=== PATIENT | female | born 1935 | race Caucasian/White ===

== ENCOUNTER → 2017-03-31 | Outpatient (CLI) | payer MEDICARE, OTHER ==
[~2017-03-31] MED LIST: ASPI1TAB69 PO; CLOP75TA PO; DENO60P SQ; FOLI5CAP PO; HYDR200T3 PO; LEVO.15 PO; LOSA100T PO; METF1000 PO; METH2.5T INJ; METO25TA3 PO; MULT1TAB84 PO; MULT400T PO; OMEP20TA93 PO; OYST500T53 PO; VENTAER INH; VITA100064 PO
[2017-03-31 12:24] LABS: AUTOMATED NEUTROPHIL # 4.5 TH/MM3 (1.8-7.7); BASOPHIL # 0.1 TH/MM3 (0-0.2); BASOPHIL % 0.9 % (0.0-2.0); EOSINOPHIL # 0.2 TH/MM3 (0-0.4); EOSINOPHIL % 3.1 % (0.0-4.0); HEMATOCRIT 37.2 % (35.0-46.0); HEMO FLAGS DIFF FINAL; LYMPH % 14.1 % (9.0-44.0); LYMPHOCYTE # 0.9 TH/MM3 (1.0-4.8); MEAN CELL VOLUME 90.9 FL (80.0-100.0); MEAN CORPUSCULAR HEMOGLOBIN 31.4 PG (27.0-34.0); MEAN CORPUSCULAR HGB CONC 34.6 % (32.0-36.0); MONO % 8.1 % (0.0-8.0); NEUT % 73.8 % (16.0-70.0); PLATELET COUNT 243 TH/MM3 (150-450); RED BLOOD COUNT 4.09 MIL/MM3 (4.00-5.30); RED CELL DISTRIBUTION WIDTH 15.4 % (11.6-17.2); WHITE BLOOD COUNT 6.2 TH/MM3 (4.0-11.0)
== END ==
LOC: CLAB 12:03
PROVIDERS: ATTEND Surgery
DX: C50.919 Malignant neoplasm of unspecified site of unspecified female breast (principal)
CPT/HCPCS: 36415; 85025

== ENCOUNTER → 2017-03-31 | Outpatient (CLI) | payer MEDICARE, OTHER ==
--- NOTE | 2017-04-01 09:23 | EKG ---
Date Performed: 03/31/2017 Time Performed: 12:39:38 PTAGE: 82 years EKG: Sinus rhythm . Compared to prior tracing no significant change Normal ECG PREVIOUS TRACING : 04/01/2016 11.33 DOCTOR: Shaquille Camara Interpretating Date/Time 04/01/2017 09:21:40
== END ==
LOC: HCAV 12:32
PROVIDERS: ATTEND Surgery
DX: C50.919 Malignant neoplasm of unspecified site of unspecified female breast (principal)
CPT/HCPCS: 93005

== ENCOUNTER → 2017-04-12 | Day surgery (SDC) | payer MEDICARE, OTHER ==
[~2017-04-12] MED LIST changes: +BUPIVACAINE HCL PF 0.5% 10 ML VIAL ONE; +ISOSULFAN BLUE 50 MG/5 ML VIAL SQ ONE; +ONDANSETRON HCL 4 MG/2 ML VIAL IV PUSH ONE; +PROPOFOL 200 MG/20 ML AMP IV ONE; +RESP: ALBUTEROL 2.5 MG/3 ML NEB (SCH) ONE; +SODIUM CHLORIDE 0.9% 20 ML VIAL ONE; +ceFAZolin 2 GM PREMIX 50 ML ONE
--- NOTE | 2017-04-12 15:14 | TN ---
cc: MARLEE REYNOLDS DATE OF SURGERY: 04/12/2017 PREOPERATIVE DIAGNOSIS Right breast cancer. POSTOPERATIVE DIAGNOSIS Right breast cancer. PROCEDURE PERFORMED 1. Right breast needle-localized lumpectomy. 2. Right axillary sentinel lymph node biopsy. SURGEON Marlee Reynolds. ANESTHESIA General via LMA device. INDICATION The patient is an 82-year-old female noted to have two separate areas of invasive ductal carcinoma. The first site was at 10 o'clock 3 cm from the nipple, and the second site was at 12 o'clock 4 cm from the nipple. The patient and her daughter have opted for lumpectomy alone and refused consideration of mastectomy. She now presents for the procedure. INTRAOPERATIVE FINDINGS At the time of surgery two sentinel lymph nodes were identified. #1 had a count of 665, and #2 had a count of 257. There was no blue and touch-prep was not performed. Specimen mammogram did demonstrate an intact wire and both lesions and clips were present in the excised tissue. PROCEDURE After informed consent was obtained and site verification was performed, the patient was brought to the radiology suite where she underwent needle localization of both biopsy sites using a single wire as well as peritumoral radionuclide injection. She was then brought to the major operating room where she underwent general anesthesia via an LMA device. She was given a single dose of IV Ancef and sequential compression hose were placed. 8 cc of half-strength Lymphazurin were injected in the subareolar right breast and a five-minute massage was performed. The right breast was then prepped and draped in sterile fashion to include the right arm. An incision was anesthetized at the inferior aspect of the right axillary hairline using 0.5% Marcaine plain. The incision was then sharply created and further electrocautery dissection was performed until the clavipectoral fascia was divided and the level I axilla was entered. There was a mid level I lymph node which was circumferentially dissected free from surrounding structures, but this had no count. Two low level I lymph nodes were identified near the axillary tail of the breast and each of these was circumferentially dissected free from surrounding structures using the Harmonic scalpel with the counts as noted. There was no blue dye uptake. Hemostasis was easily obtained using the Harmonic scalpel and the lymph nodes were sent for permanent pathologic evaluation. The wound was closed using interrupted 3-0 Vicryl subcutaneous sutures and a 4-0 Monocryl subcuticular suture. Attention was then turned to the right breast and a periareolar incision was anesthetized from 12 o'clock down to 8 o'clock. Sharp dissection was performed until the wire entry point through the skin was identified and secured with a hemostat. The wire was cut off at the skin with pin cutters and a 2-0 silk transfixion suture was placed at the wire entry point into the breast tissue. Both sharp and electrocautery dissection were then performed circumferentially beyond the tip of the wire and the specimen was oriented with two sutures laterally, one long suture anteriorly, and one short suture superiorly. It should be noted that the 10 o'clock and 12 o'clock lesions were both contained within the single lumpectomy specimen. The specimen was sent to mammography with the findings as noted and was then sent for permanent pathologic evaluation. Hemostasis was easily obtained with electrocautery and the wound was closed using interrupted 3-0 Vicryl subcutaneous sutures and a 4-0 Monocryl subcuticular suture. Steri-Strips and sterile dressing were applied. The patient tolerated the procedure well with an estimated blood loss of 50 cc. She was extubated in the operating room and brought to the recovery room in good condition. MD OUMAR Hermosillo/CAITIE /2:45 PM /2:59 PM
== END | disposition home or self-care (01) ==
LOC: ESDC 08:56
PROVIDERS: ATTEND Surgery
DX: C50.911 Malignant neoplasm of unspecified site of right female breast (principal)
CPT/HCPCS: 00400; 01610; 19125; 38525; 38792; 88307; J0690; J2405; J3010; J7613; Q9968

== ENCOUNTER 2017-08-25 10:41 | Emergency (ER) | payer MEDICARE, OTHER ==
[~2017-08-25] VITALS: Ht 152.4 cm; Wt 52.0 kg
[~2017-08-25 10:41] MED LIST changes: -BUPIVACAINE HCL PF 0.5% 10 ML VIAL ONE; -ISOSULFAN BLUE 50 MG/5 ML VIAL SQ ONE; -ONDANSETRON HCL 4 MG/2 ML VIAL IV PUSH ONE; -PROPOFOL 200 MG/20 ML AMP IV ONE; -RESP: ALBUTEROL 2.5 MG/3 ML NEB (SCH) ONE; -SODIUM CHLORIDE 0.9% 20 ML VIAL ONE; -ceFAZolin 2 GM PREMIX 50 ML ONE
[2017-08-25 10:44] VITALS: BP 152/71; PULSE 85; RESP 18; TEMP 98; O2SAT 100
[2017-08-25] MEDS ORDERED: KETOROLAC TROMETHAMINE 60 MG/2 ML (IM) VIAL IM ONE (11:30)
[2017-08-25 12:35] VITALS: RESP 18
--- NOTE | 2017-08-25 12:49 | RADRPT ---
EXAM DATE/TIME: 08/25/2017 11:56 [facility] COMPARISON: No previous studies available for comparison. INDICATIONS : Back pain. MEDICAL HISTORY : None. SURGICAL HISTORY : None. ENCOUNTER: Initial ACUITY: 2 days PAIN SCORE: 10/10 LOCATION: Lumbar FINDINGS: There are five non-rib bearing vertebral bodies. Marked loss of disc space height at L4-5 and L5-S1. Moderate degenerative changes are present facets. Moderate vascular gas stations are noted. Lumba r spinal stenosis would be consideration. CONCLUSION: Extensive degenerative changes from L4 to S1.. There is no compression fracture Ridge Swanson MD FACR on August 25, 2017 at 12:45 Board Certified Radiologist. This report was verified electronically.
[2017-08-25] MEDS ORDERED: TRAM50TA PO (13:01)
[2017-08-25] MEDS ORDERED: SENN8.6T13 PO (13:02)
--- NOTE | 2017-08-25 13:02 | PD ---
HPI Chief Complaint: Back/ Neck Pain or Injury Time Seen by Provider: 11:12 Travel History International Travel<30 days: No Contact w/Intl Traveler<30days: No Traveled to known affect area: No History of Present Illness HPI 82-year-old woman presents emerged from complaining of low back pain, history of low back pain in the past, worse this morning. Pain with walking. No numbness tingling or weakness. Follows with Dr. Chavarria. History Past Medical History Medical History: Denies Significant Hx : 2 Para: 2 Social History Alcohol Use: No Tobacco Use: No Allergies-Medications (Allergen,Severity, Reaction): Coded Allergies: acetaminophen (Unverified Allergy, Severe, SHORTNESS OF BREATH, 12/27/16) ibuprofen (Unverified Allergy, Severe, BLOOD LOSS, 12/27/16) oxycodone (Unverified Allergy, Severe, SHORTNESS OF BREATH, 12/27/16) hydrocodone (Unverified Adverse Reaction, Severe, "WAS TO STRONG", 12/27/16 ) Influenza Virus Vaccines (Unverified Adverse Reaction, Intermediate, Hives , 12/27/16) Reported Meds & Prescriptions Reported Meds & Active Scripts Active Ventolin Hfa 18 GM Inh (Albuterol Sulfate) 90 Mcg/Act Aer 2 Puff INH Q4-6H PRN Reported Omeprazole 20 Mg Tab 20 Mg PO DAILY Prolia Inj (Denosumab) 60 Mg/Ml Inj 60 Mg SQ Q180D Vitamin D (Cholecalciferol) 1,000 Unit Tab 2,000 Units PO DAILY Oyster Shell Calcium (Calcium Carbonate-Cholecalciferol) 500-400 Mg-Unit Tab 1 Tab PO DAILY Multivitamin Adults (Multiple Vitamins W/ Minerals) 1 Tab 1 Tab PO DAILY Multaq (Dronedarone) 400 Mg Tab 400 Mg PO BID Aspirin 81 Mg Tabdr 81 Mg PO DAILY Clopidogrel (Clopidogrel Bisulfate) 75 Mg Tab 75 Mg PO DAILY Methotrexate 2.5 Mg Tab 17.5 Injection INJ Q7D Folic Acid 5 Mg Cap 1 Mg PO DIRECTED Hydroxychloroquine (Hydroxychloroquine Sulfate) 200 Mg Tab 200 Mg PO DAILY Takw with food Metoprolol Tartrate 25 Mg Tab 25 Mg PO BID Losartan (Losartan Potassium) 100 Mg Tab 100 Mg PO DAILY Metformin (Metformin HCl) 1,000 Mg Tab 1,000 Mg PO DAILY With a meal Synthroid (Levothyroxine Sodium) 150 Mcg Tab 150 Mcg PO DAILY Review of Systems Except as stated in HPI: all other systems reviewed are Neg Physical Exam Narrative GENERAL: 82-year-old woman, no acute distress per SKIN: Warm and dry. CARDIOVASCULAR: Warm and well perfused. RESPIRATORY: Normal rate and effort. MUSCULOSKELETAL: Normal appearance of the back. She is a bit kyphotic. No real tenderness. Pain with walking. Strength seems full and equal in lower extremities. Able to walk with a little bit of assistance. NEUROLOGICAL: Awake and alert. No gross deficits. Data Data Last Documented VS Vital Signs Date Time Temp Pulse Resp B/P (MAP) Pulse Ox O2 Delivery O2 Flow Rate FiO2 08/25/17 12:35 18 08/25/17 10:44 98.0 85 152/71 (98) 100 Orders Orders Spine, Lumbar Comp W/Obliq (08/25/17 ) Ketorolac Inj (Toradol Inj) (08/25/17 11:30) MDM Medical Decision Making Medical Screen Exam Complete: Yes Emergency Medical Condition: Yes Interpretation(s) L-spine x-ray: No definite fracture. Extensive degenerative changes. Differential Diagnosis Arthritis, compression fracture, radiculopathy, other Narrative Course Well-appearing 82-year-old woman, elderly, back pain with a history of back pain. Looks well. No other red flag symptoms. X-ray that shows arthritis. Recommend supportive treatment. Diagnosis Primary Impression: Low back pain Patient Instructions: General Instructions Additional Instructions: Take tramadol sparingly as needed for back pain. Take Ana-Colace with it to prevent constipation. Use caution a strong pain medicines can lead to increased risk of falls. Drink plenty fluids stay well-hydrated. Follow with her primary doctor in the next 2-4 days. Med/Other Pt SpecificInfo: Prescription(s) given Scripts Sennosides/Docusate Sodium (Docusate Sodium-Senna Tablet) 8.6 Mg-50 Mg Tablet 2 TAB PO HS, #20 Prov: Adin Hickman MD 08/25/17 Tramadol (Tramadol) 50 Mg Tab 50 MG PO Q8H Y for PAIN, #12 TAB 0 Refills Prov: Adin Hickman MD 08/25/17 Disposition: 01 DISCHARGE HOME Condition: Stable Adin Hickman MD Aug 25, 2017 13:02
== END 2017-08-25 13:23 | disposition home or self-care (01) ==
LOC: NEPD 10:41
DX: M54.5 Low back pain (principal)
CPT/HCPCS: 72110; 96372; 99283; J1885

== ENCOUNTER 2017-08-30 08:43 | Inpatient (IN) | payer MEDICARE, OTHER ==
[2017-08-30] VITALS (10 sets, daily range): BP systolic 158–213; BP diastolic 72–108; PULSE 74–109; RESP 17–20; TEMP 97.5–98.5; O2SAT 91–98
[~2017-08-30] VITALS: Ht 152.4 cm; Wt 52.0 kg
[~2017-08-30 08:43] MED LIST changes: +SENN8.6T13 PO; +TRAM50TA PO
[2017-08-30] MEDS ORDERED: HYDR-3516 PO (09:14)
[2017-08-30] MEDS ORDERED: ASPI-516 CHEW (09:14)
[2017-08-30] MEDS ORDERED: FOLI1TAB6 PO (09:14)
[2017-08-30] MEDS ORDERED: MULT400T PO (09:14)
[2017-08-30] MEDS ORDERED: METF500T PO (09:14)
[2017-08-30] MEDS ORDERED: MULTTAB67 PO (09:14)
[2017-08-30] MEDS ORDERED: ONDANSETRON HCL 4 MG/2 ML VIAL IV PUSH ONE (09:45)
[2017-08-30] MEDS ORDERED: METOPROLOL TARTRATE 25 MG TAB PO ONE (09:45)
[2017-08-30] MEDS ORDERED: MORPHINE SULFATE 2 MG/ML SYRINGE IV PUSH ONE (09:45)
[2017-08-30] MEDS ORDERED: SODIUM CHLOR 0.9% 250 ML INJ 250 ML IV ONE (10:00)
[2017-08-30 10:04] LABS: AUTOMATED NEUTROPHIL # 11.4 TH/MM3 (1.8-7.7); BASOPHIL % 0.1 % (0.0-2.0); EOSINOPHIL # 0.1 TH/MM3 (0-0.4); EOSINOPHIL % 0.6 % (0.0-4.0); HEMATOCRIT 38.4 % (35.0-46.0); HEMOGLOBIN 13.2 GM/DL (11.6-15.3); LYMPH % 3.2 % (9.0-44.0); LYMPHOCYTE # 0.4 TH/MM3 (1.0-4.8); MEAN CELL VOLUME 88.3 FL (80.0-100.0); MEAN CORPUSCULAR HEMOGLOBIN 30.4 PG (27.0-34.0); MEAN CORPUSCULAR HGB CONC 34.4 % (32.0-36.0); MEAN PLATELET VOLUME 7.4 FL (7.0-11.0); MONO % 8.1 % (0.0-8.0); MONOCYTE # 1.1 TH/MM3 (0-0.9); PLATELET COUNT 432 TH/MM3 (150-450); RED BLOOD COUNT 4.35 MIL/MM3 (4.00-5.30)
--- NOTE | 2017-08-30 10:09 | PD ---
HPI Chief Complaint: Back/ Neck Pain or Injury Time Seen by Provider: 09:23 Travel History International Travel<30 days: No Contact w/Intl Traveler<30days: No Traveled to known affect area: No History of Present Illness HPI 82-year-old woman presents to the emergency department complaining of worsening low back pain. She was seen in the emergency department here by me several days ago with x-rays not showing any definite fracture. She has a history of breast cancer, is on anastrozole, as well as recurrent thyroid cancer. She had been doing well until she developed this back pain. After being discharged she followed up with Dr. Brown, who did a repeat x-ray that showed new/ worsening L1 compression fracture. She had worsening pain throughout the night last night. Pain is gotten more severe and she is now unable to walk. She was thus brought to the emergency department here. History Past Medical History Narrative Medical Recurrent thyroid cancer Breast cancer, on anastrozole, no chemotherapy Hypertension Diabetes Rheumatoid arthritis, on methotrexate History of A. fib CAD, history of stent Hypothyroidism : 2 Para: 2 Social History Alcohol Use: No Tobacco Use: No Allergies-Medications (Allergen,Severity, Reaction): Coded Allergies: acetaminophen (Unverified Allergy, Severe, SHORTNESS OF BREATH, 08/30/17) ibuprofen (Unverified Allergy, Severe, BLOOD LOSS, 08/30/17) oxycodone (Unverified Allergy, Severe, SHORTNESS OF BREATH, 08/30/17) hydrocodone (Unverified Adverse Reaction, Severe, "WAS TO STRONG", 08/30/17 ) Influenza Virus Vaccines (Unverified Adverse Reaction, Intermediate, Hives , 08/30/17) Reported Meds & Prescriptions Reported Meds & Active Scripts Active Ventolin Hfa 18 GM Inh (Albuterol Sulfate) 90 Mcg/Act Aer 2 Puff INH Q4-6H PRN Reported Hydrocodone-Acetaminophen 5-325 mg Tab 1 Tab PO Q4H PRN Multiple Vitamin 1 Tab 1 Tab PO DAILY Multaq (Dronedarone) 400 Mg Tab 400 Mg PO BID Folic Acid 1 Mg Tablet 1 Mg PO DIRECTED Metformin (Metformin HCl) 500 Mg Tab 1,000 Mg PO DAILY With a meal Aspirin 81 Mg Chew 81 Mg CHEW DAILY Omeprazole 20 Mg Tab 20 Mg PO DAILY Prolia Inj (Denosumab) 60 Mg/Ml Inj 60 Mg SQ Q180D Oyster Shell Calcium (Calcium Carbonate-Cholecalciferol) 500-400 Mg-Unit Tab 1 Tab PO DAILY Clopidogrel (Clopidogrel Bisulfate) 75 Mg Tab 75 Mg PO DAILY Methotrexate 2.5 Mg Tab 17.5 Injection INJ Q7D Hydroxychloroquine (Hydroxychloroquine Sulfate) 200 Mg Tab 200 Mg PO DAILY Takw with food Metoprolol Tartrate 25 Mg Tab 25 Mg PO BID Losartan (Losartan Potassium) 100 Mg Tab 100 Mg PO DAILY Synthroid (Levothyroxine Sodium) 150 Mcg Tab 150 Mcg PO DAILY Review of Systems Except as stated in HPI: all other systems reviewed are Neg Physical Exam Narrative GENERAL: Well-appearing 82-year-old woman, no acute distress. SKIN: Focused skin assessment warm/dry. NECK: Trachea midline. No JVD. CARDIOVASCULAR: Regular rate and rhythm. No murmur appreciated. RESPIRATORY: No accessory muscle use. Clear to auscultation. Breath sounds equal bilaterally. GASTROINTESTINAL: Abdomen soft, non-tender, nondistended. Hepatic and splenic margins not palpable. MUSCULOSKELETAL: No obvious deformities. No clubbing. No cyanosis. No edema. NEUROLOGICAL: Awake and alert. No obvious cranial nerve deficits. Motor grossly within normal limits. Normal sensation in the lower extremities. Normal speech. PSYCHIATRIC: Appropriate mood and affect; insight and judgment normal. Data Data Last Documented VS Vital Signs Date Time Temp Pulse Resp B/P (MAP) Pulse Ox O2 Delivery O2 Flow Rate FiO2 08/30/17 10:35 18 08/30/17 08:48 97.5 109 213/108 (143) 97 Orders Orders Complete Blood Count With Diff (08/30/17 09:39) Comprehensive Metabolic Panel (08/30/17 09:39) Iv Access Insert/Monitor (08/30/17 09:39) Morphine Inj (Morphine Inj) (08/30/17 09:45) Ondansetron Inj (Zofran Inj) (08/30/17 09:45) Metoprolol Tartrate (Lopressor) (08/30/17 09:45) Mri L Spine W/O Contrast (08/30/17 ) Type And Screen (08/30/17 09:54) Blood Product Administration (08/30/17 09:54) Sodium Chlor 0.9% 250 Ml Inj (Ns 250 Ml (08/30/17 10:00) Consult Orthopedic (08/30/17 ) (Hub Use Only)Inp Phy Cons/Ref (08/30/17 ) Labs Laboratory Tests Test 08/30/17 09:40 White Blood Count 13.0 TH/MM3 Red Blood Count 4.35 MIL/MM3 Hemoglobin 13.2 GM/DL Hematocrit 38.4 % Mean Corpuscular Volume 88.3 FL Mean Corpuscular Hemoglobin 30.4 PG Mean Corpuscular Hemoglobin Concent 34.4 % Red Cell Distribution Width 16.0 % Platelet Count 432 TH/MM3 Mean Platelet Volume 7.4 FL Neutrophils (%) (Auto) 88.0 % Lymphocytes (%) (Auto) 3.2 % Monocytes (%) (Auto) 8.1 % Eosinophils (%) (Auto) 0.6 % Basophils (%) (Auto) 0.1 % Neutrophils # (Auto) 11.4 TH/MM3 Lymphocytes # (Auto) 0.4 TH/MM3 Monocytes # (Auto) 1.1 TH/MM3 Eosinophils # (Auto) 0.1 TH/MM3 Basophils # (Auto) 0.0 TH/MM3 CBC Comment DIFF FINAL Differential Comment Blood Urea Nitrogen 16 MG/DL Creatinine 0.86 MG/DL Random Glucose 271 MG/DL Total Protein 7.0 GM/DL Albumin 3.2 GM/DL Calcium Level 8.6 MG/DL Alkaline Phosphatase 97 U/L Aspartate Amino Transf (AST/SGOT) 14 U/L Alanine Aminotransferase (ALT/SGPT) 22 U/L Total Bilirubin 0.5 MG/DL Sodium Level 128 MEQ/L Potassium Level 4.6 MEQ/L Chloride Level 92 MEQ/L Carbon Dioxide Level 25.5 MEQ/L Anion Gap 11 MEQ/L Estimat Glomerular Filtration Rate 63 ML/MIN [facility] Medical Decision Making Medical Screen Exam Complete: Yes Emergency Medical Condition: Yes Differential Diagnosis Compression fracture, retropulsion, weakness, intractable pain, other Narrative Course Medical decision making 82-year-old woman who presents emerged department with intractable back pain related to L1 compression fracture. She looks well. Will get pain medicine. We will give her her home heart medicines. I spoke with Dr. Sourav Brown. There are planning on doing kyphoplasty but given her worsening intractable pain , we will plan on kyphoplasty in house. Hold Plavix. Requesting a platelet transfusion for history of long-term Plavix use and planning for spine procedure tomorrow. I discussed this with the family is agreeable. We will plan on admission to medicine. Diagnosis Primary Impression: Compression fracture of L1 lumbar vertebra Additional Impression: Intractable back pain Admitting Information Admitting Physician Requests: Admit Adin Hickman MD Aug 30, 2017 10:09
[2017-08-30 10:28] LABS: ALBUMIN 3.2 GM/DL (3.4-5.0); AST (GOT) 14 U/L (15-37); BICARBONATE 25.5 MEQ/L (21.0-32.0); BLOOD UREA NITROGEN 16 MG/DL (7-18); CALCIUM 8.6 MG/DL (8.5-10.1); CHLORIDE 92 MEQ/L (98-107); CREATININE 0.86 MG/DL (0.50-1.00); GLOMERULAR FILTRATION RATE 63 ML/MIN (>89); GLUCOSE,RANDOM 271 MG/DL (74-106); SODIUM (NA) 128 MEQ/L (136-145)
[2017-08-30 10:31] LABS: ALKALINE PHOSPHATASE 97 U/L (45-117); ALT (GPT) 22 U/L (10-53); TOTAL BILIRUBIN ADULT 0.5 MG/DL (0.2-1.0)
[2017-08-30] MEDS ORDERED: LACTULOSE SYRUP 20 GM/30 ML CUP PO PRN (11:15)
[2017-08-30] MEDS ORDERED: MORPHINE SULFATE 2 MG/ML SYRINGE IV PUSH PRN (11:15)
[2017-08-30] MEDS ORDERED: RESP: ALBUTEROL 2.5 MG/IPRATROPIUM 0.5 MG NEB (PRN) NEB (11:15)
[2017-08-30] MEDS ORDERED: NALOXONE HCL 0.4 MG/ML AMP IV PUSH PRN (11:15)
[2017-08-30] MEDS ORDERED: ONDANSETRON HCL 4 MG/2 ML VIAL IVP PRN (11:15)
[2017-08-30] MEDS ORDERED: SODIUM CHLORIDE 0.9% FLUSH 10 ML FLUSH IV FLUSH PRN (11:15)
[2017-08-30] MEDS ORDERED: BISACODYL 10 MG SUPP RECTAL PRN (11:15)
[2017-08-30] MEDS ORDERED: ACETAMINOPHEN 325 MG TAB PO PRN (11:45)
[2017-08-30] MEDS ORDERED: DEXTROSE 50% IN WATER 50 ML VIAL(D50) IV PUSH PRN (11:45)
[2017-08-30] MEDS ORDERED: GLUCAGON 1 MG/ML VIAL OTHER PRN (11:45)
--- NOTE | 2017-08-30 11:48 | HHI.HP ---
HPI Service [facility] Primary Care Physician Blake Kraft M.D. Admission Diagnosis Intractable back pain, compression fracture Diagnoses: (1) Compression fracture of L1 lumbar vertebra (2) Intractable back pain Chief Complaint: Intractable back pain Travel History International Travel<30 Days: No Contact w/Intl Traveler <30 Da: No Traveled to Known Affected Are: No History of Present Illness 82-year-old female with history of breast cancer, osteoporosis, intractable back pain, returns to the ED for evaluation of worsening intractable back pain and evaluation of L1 compression fracture found on an outside imaging study. Patient was recently in the ED August 25, 2017 and at the time, imaging study did not reveal any fracture. However patient states she continued to have severe pain and was sent to [place] [facility] associate by her orthopedic surgeon. She states last night the pain was so severe that she could barely walk and needed help to go to the bathroom however denies any bladder or bowel dysfunction. She rated the pain 10 out of 10 in intensity, but currently stated the pain is stable. She denies any chest pain or shortness of breath. Review of Systems Except as stated in HPI: all other systems reviewed are Neg Past Family Social History Past Medical History Recurrent thyroid cancer Breast cancer, on anastrozole, no chemotherapy Hypertension Diabetes Rheumatoid arthritis History of A. fib CAD, history of stent Hypothyroidism Past Surgical History Appendectomy Thyroidectomy Tonsillectomy Reported Medications Hydrocodone-Acetaminophen 5-325 mg Tab 1 Tab PO Q4H PRN Multiple Vitamin 1 Tab 1 Tab PO DAILY Multaq (Dronedarone) 400 Mg Tab 400 Mg PO BID Folic Acid 1 Mg Tablet 1 Mg PO DIRECTED Metformin (Metformin HCl) 500 Mg Tab 1,000 Mg PO DAILY With a meal Aspirin 81 Mg Chew 81 Mg CHEW DAILY Omeprazole 20 Mg Tab 20 Mg PO DAILY Prolia Inj (Denosumab) 60 Mg/Ml Inj 60 Mg SQ Q180D Oyster Shell Calcium (Calcium Carbonate-Cholecalciferol) 500-400 Mg-Unit Tab 1 Tab PO DAILY Clopidogrel (Clopidogrel Bisulfate) 75 Mg Tab 75 Mg PO DAILY Methotrexate 2.5 Mg Tab 17.5 Injection INJ Q7D Hydroxychloroquine (Hydroxychloroquine Sulfate) 200 Mg Tab 200 Mg PO DAILY Takw with food Metoprolol Tartrate 25 Mg Tab 25 Mg PO BID Losartan (Losartan Potassium) 100 Mg Tab 100 Mg PO DAILY Synthroid (Levothyroxine Sodium) 150 Mcg Tab 150 Mcg PO DAILY Allergies: Coded Allergies: acetaminophen (Unverified Allergy, Severe, SHORTNESS OF BREATH, 08/30/17) ibuprofen (Unverified Allergy, Severe, BLOOD LOSS, 08/30/17) oxycodone (Unverified Allergy, Severe, SHORTNESS OF BREATH, 08/30/17) hydrocodone (Unverified Adverse Reaction, Severe, "WAS TO STRONG", 08/30/17 ) Influenza Virus Vaccines (Unverified Adverse Reaction, Intermediate, Hives , 08/30/17) Family History Family history positive for diabetes, CAD Social History Denies any tobacco, alcohol or illicit drug intake Physical Exam Vital Signs Vital Signs Date Time Temp Pulse Resp B/P (MAP) Pulse Ox O2 Delivery O2 Flow Rate FiO2 08/30/17 10:35 18 08/30/17 08:48 97.5 109 17 213/108 (143) 97 Physical Exam GENERAL: This is a well-nourished, well-developed patient, in no apparent distress. SKIN: No rashes, ecchymoses or lesions. Cool and dry. HEAD: Atraumatic. Normocephalic. No temporal or scalp tenderness. EYES: Pupils equal round and reactive. Extraocular motions intact. No scleral icterus. No injection or drainage. ENT: Nose without bleeding, purulent drainage or septal hematoma. Throat without erythema, tonsillar hypertrophy or exudate. Uvula midline. Airway patent. NECK: Trachea midline. No JVD or lymphadenopathy. Supple, nontender, no meningeal signs. CARDIOVASCULAR: Irregular regular rate and rhythm without murmurs, gallops, or rubs. RESPIRATORY: Clear to auscultation. Breath sounds equal bilaterally. No wheezes , rales, or rhonchi. GASTROINTESTINAL: Abdomen soft, non-tender, nondistended. No hepato-splenomegaly , or palpable masses. No guarding. MUSCULOSKELETAL: Extremities without clubbing, cyanosis, or edema. No joint tenderness, effusion, or edema noted. No calf tenderness. Negative Homans sign bilaterally. NEUROLOGICAL: Awake and alert. Cranial nerves II through XII intact. Motor and sensory grossly within normal limits. Five out of 5 muscle strength in all muscle groups. Normal speech. Laboratory Laboratory Tests Test 08/30/17 09:40 White Blood Count 13.0 Red Blood Count 4.35 Hemoglobin 13.2 Hematocrit 38.4 Mean Corpuscular Volume 88.3 Mean Corpuscular Hemoglobin 30.4 Mean Corpuscular Hemoglobin Concent 34.4 Red Cell Distribution Width 16.0 Platelet Count 432 Mean Platelet Volume 7.4 Neutrophils (%) (Auto) 88.0 Lymphocytes (%) (Auto) 3.2 Monocytes (%) (Auto) 8.1 Eosinophils (%) (Auto) 0.6 Basophils (%) (Auto) 0.1 Neutrophils # (Auto) 11.4 Lymphocytes # (Auto) 0.4 Monocytes # (Auto) 1.1 Eosinophils # (Auto) 0.1 Basophils # (Auto) 0.0 CBC Comment DIFF FINAL Differential Comment Blood Urea Nitrogen 16 Creatinine 0.86 Random Glucose 271 Total Protein 7.0 Albumin 3.2 Calcium Level 8.6 Alkaline Phosphatase 97 Aspartate Amino Transf (AST/SGOT) 14 Alanine Aminotransferase (ALT/SGPT) 22 Total Bilirubin 0.5 Sodium Level 128 Potassium Level 4.6 Chloride Level 92 Carbon Dioxide Level 25.5 Anion Gap 11 Estimat Glomerular Filtration Rate 63 Result Diagram: 08/30/1740 08/30/1740 Septic Shock Reassessment Septic shock perfusion: reassessment completed Caprini VTE Risk Assessment Caprini VTE Risk Assessment: Mod/High Risk (score >= 2) Caprini Risk Assessment Model Point Value = 1 Point Value = 2 Point Value = 3 Point Value = 5 Age 41-60 Minor surgery BMI > 25 kg/m2 Swollen legs Varicose veins or History of unexplained or recurrent spontaneous Oral contraceptives or hormone replacement Sepsis (< 1 month) Serious lung disease, including pneumonia (< 1 month) Abnormal pulmonary function Acute myocardial infarction Congestive heart failure (< 1 month) History of inflammatory bowel disease Medical patient at bed rest Age 61-74 Arthroscopic surgery Major open surgery (> 45 min) Laparoscopic surgery (> 45 min) Malignancy Confined to bed (> 72 hours) Immobilizing plaster cast Central venous access Age >= 75 History of VTE Family history of VTE Factor V Leiden Prothrombin [id number] Lupus anticoagulant Anticardiolipin antibodies Elevated serum homocysteine Heparin-induced thrombocytopenia Other congenital or acquired thrombophilia Stroke (< 1 month) Elective arthroplasty Hip, pelvis, or leg fracture Acute spinal cord injury (< 1 month) Prophylaxis Regimen Total Risk Factor Score Risk Level Prophylaxis Regimen 0-1 Low Early ambulation 2 Moderate Order ONE of the following: *Sequential Compression Device (SCD) *Heparin 5000 units SQ BID 3-4 Higher Order ONE of the following medications: *Heparin 5000 units SQ TID *Enoxaparin/Lovenox 40 mg SQ daily (WT < 150 kg, CrCl > 30 mL/min) *Enoxaparin/Lovenox 30 mg SQ daily (WT < 150 kg, CrCl > 10-29 mL/min) *Enoxaparin/Lovenox 30 mg SQ BID (WT < 150 kg, CrCl > 30 mL/min) AND/OR *Sequential Compression Device (SCD) 5 or more Highest Order ONE of the following medications: *Heparin 5000 units SQ TID (Preferred with Epidurals) *Enoxaparin/Lovenox 40 mg SQ daily (WT < 150 kg, CrCl > 30 mL/min) *Enoxaparin/Lovenox 30 mg SQ daily (WT < 150 kg, CrCl > 10-29 mL/min) *Enoxaparin/Lovenox 30 mg SQ BID (WT < 150 kg, CrCl > 30 mL/min) AND *Sequential Compression Device (SCD) Assessment and Plan Problem List: (1) Compression fracture of L1 lumbar vertebra ICD Code: S32.010A - Wedge compression fracture of first lumbar vertebra, initial encounter for closed fracture Status: Acute (2) Intractable back pain ICD Code: M54.9 - Dorsalgia, unspecified Status: Acute Assessment and Plan 82-year-old female with Compression fracture of L1 lumbar vertebra Intractable back pain Spine MRI pending Orthopedic surgery consultation pending for kyphoplasty August 31, 2017 Hold Plavix and give platelet transfusion 1 now Pain medication accordingly PT consult postprocedure to treat any well DVT prophylaxis postprocedure per orthopedic surgery Diabetes type 2 Labile blood glucose Hold metformin, start insulin sliding scale and check hemoglobin A1c History of hypertension, atrial fibrillation and other chronic medical conditions Plavix on hold, and resume outpatient medications Leukocytosis Likely stress reactive however will check UA and treat accordingly DVT prophylaxis: Postprocedure per orthopedic surgery, bilateral SCDs now Code Status Full code Discussed Condition With Patient, ED physician Esau Townsend MD Aug 30, 2017 11:48
[2017-08-30] MEDS: INSULIN ASPART SUPPLEMENTAL SCALE SQ SCH ×3 (12:00→21:00)
--- NOTE | 2017-08-30 15:51 | RADRPT ---
EXAM DATE/TIME: 08/30/2017 14:54 [facility] COMPARISON: No previous studies available for comparison. INDICATIONS : Trauma. Compression fracture MEDICAL HISTORY : Carcinoma, breast. Diabetes mellitus type 2. Hypertension. SURGICAL HISTORY : Hysterectomy. Hip replacement ENCOUNTER: Initial ACUITY: 4-6 days PAIN SCORE: 5/10 LOCATION: Lumbar TECHNIQUE: Multiplanar multisequence MRI of the lumbar spine was performed without contrast. FINDINGS: The most caudal appearing lumbar vertebra is numbered as L5. VERTEBRAE: There is abnormal signal in the L1 vertebral body consistent with labral and acute compression fractu re. CONUS: Normal level and configuration. T12-L1: Acute compression fracture of L1 with minimal enhancement on the anterior thecal space compromising t he thecal sac by approximately 10%. L1-L2: The thecal sac has a normal diameter. No evidence of disc bulge or protrusion. The neural foramina are patent bilaterally. L2-L3: The thecal sac has a normal diameter. No evidence of disc bulge or protrusion. The neural foramina are patent bilaterally. L3-L4: Mild bulging causing flattening of the anterior thecal space and minimal bilateral neural foramina en croachment. Moderate degenerative changes in the facets. L4-L5: Generalized bulging with bilateral foraminal encroachment and moderate degenerative changes in the fa cets. L5-S1: Mild disc bulge with minimal bilateral neural foramina encroachment. SI joints are normal. Peritoneum is unremarkable. CONCLUSION: Acute compression L1 total body height by approximately 20% with minimal encroachment on the thecal s ac. Ridge Swanson MD FACR on August 30, 2017 at 15:46 Board Certified Radiologist. This report was verified electronically.
[2017-08-30] MEDS: ENALAPRILAT 2.5 MG/2 ML VIAL IV PUSH PRN (17:19)
[2017-08-30] MEDS: HYDROmorphone HCL 2 MG TAB PO PRN (22:18)
[2017-08-30] MEDS: DRONEDARONE 400 MG TAB PO SCH (22:19)
[2017-08-30] MEDS: METOPROLOL TARTRATE 25 MG TAB PO SCH (22:19)
[2017-08-30] MEDS: DOCUSATE SODIUM 50 MG/SENNA 8.6 MG TAB PO SCH (22:19)
[2017-08-30] MEDS: SODIUM CHLORIDE 0.9% FLUSH 10 ML FLUSH IV FLUSH SCH (22:19)
[2017-08-31 00:31] VITALS: BP 187/88; PULSE 80; RESP 17; TEMP 98.3; O2SAT 95
[2017-08-31] MEDS: hydrALAZINE HCL 25 MG TAB PO PRN (00:39)
[2017-08-31 04:44] VITALS: BP 195/86; PULSE 81; RESP 17; TEMP 98.2; O2SAT 94
[2017-08-31] MEDS: LEVOTHYROXINE SODIUM 150 MCG TAB PO SCH (05:13)
[2017-08-31] MEDS: ENALAPRILAT 2.5 MG/2 ML VIAL IV PUSH PRN (05:13)
[2017-08-31] MEDS ORDERED: BUPIVACAINE HCL PF 0.25% 30 ML VIAL ONE (07:01)
[2017-08-31] MEDS ORDERED: LIDOCAINE 1%/EPINEPHrine 1:100,000 SOLN 50 ML VIAL ONE (07:01)
[2017-08-31] MEDS ORDERED: ACETAMINOPHEN 1000 MG/100 ML 0 ML IV ONE (07:23)
[2017-08-31] MEDS ORDERED: KETAMINE HCL 500 MG/10 ML VIAL ONE (07:23)
[2017-08-31 07:27] VITALS: BP 204/93; PULSE 82; RESP 20; TEMP 97.9; O2SAT 95
[2017-08-31] MEDS: LOSARTAN 50 MG TAB PO SCH (07:47)
[2017-08-31] MEDS: SODIUM CHLORIDE 0.9% FLUSH 10 ML FLUSH IV FLUSH SCH (07:47)
[2017-08-31] MEDS: HYDROmorphone HCL 2 MG TAB PO PRN (07:47)
[2017-08-31] MEDS: DOCUSATE SODIUM 50 MG/SENNA 8.6 MG TAB PO SCH ×2 (07:47→21:00)
[2017-08-31] MEDS: METOPROLOL TARTRATE 25 MG TAB PO SCH (07:47)
[2017-08-31] MEDS: HYDROXYCHLOROQUINE SULFATE 200 MG TAB PO SCH (07:48)
[2017-08-31] MEDS: DRONEDARONE 400 MG TAB PO SCH (07:48)
[2017-08-31 07:49] LABS: BASOPHIL % 0.1 % (0.0-2.0); EOSINOPHIL # 0.2 TH/MM3 (0-0.4); EOSINOPHIL % 1.8 % (0.0-4.0); HEMATOCRIT 33.9 % (35.0-46.0); HEMOGLOBIN 11.8 GM/DL (11.6-15.3); LYMPH % 4.7 % (9.0-44.0); LYMPHOCYTE # 0.4 TH/MM3 (1.0-4.8); MEAN CELL VOLUME 87.8 FL (80.0-100.0); MEAN CORPUSCULAR HEMOGLOBIN 30.5 PG (27.0-34.0); MEAN CORPUSCULAR HGB CONC 34.8 % (32.0-36.0); MEAN PLATELET VOLUME 7.5 FL (7.0-11.0); MONO % 9.9 % (0.0-8.0); NEUT % 83.5 % (16.0-70.0); PLATELET COUNT 362 TH/MM3 (150-450); RED BLOOD COUNT 3.86 MIL/MM3 (4.00-5.30); WHITE BLOOD COUNT 9.6 TH/MM3 (4.0-11.0)
--- NOTE | 2017-08-31 07:52 | PD.CONS ---
HPI Service Orthopedic Surgeons Consult Requested By Dr. Townsend Reason for Consult Fracture of the lumbar spine Primary Care Physician Blake Kraft M.D. Admission Diagnosis Intractable back pain, compression fracture Diagnoses: (1) Compression fracture of L1 lumbar vertebra Diagnosis: Principal (2) Intractable back pain Diagnosis: Secondary Chief Complaint: Inability to ambulate or move due to low back pain from fracture History of Present Illness This patient is an 82-year-old female known to the [facility]. She has been followed by me for other orthopedic conditions. She was seen in my office on 08/29/2017. She had fallen recently. X-rays of the hospital were negative for evidence of a recent fracture. When she returns to my office, repeat x-ray showed evidence of a compression fracture of L1. An MRI scan was ordered and it was recommended that she consider a kyphoplasty because of such significant pain. The patient presented to the emergency room yesterday with complaints of pain and inability to ambulate. In MRI scan shows evidence of a recent fracture at L1. I have been asked to see her in consultation regarding the same Review of Systems Constitutional: DENIES: Diaphoretic episodes, Fatigue, Fever, Weight gain, Weight loss, Chills, Dizziness, Change in appetite, Night Sweats Endocrine: DENIES: Abnorml menstrual pattern, Heat/cold intolerance, Polydipsia , Polyuria, Polyphagia Eyes: DENIES: Blurred vision, Diplopia, Eye inflammation, Eye pain, Vision loss , Photosensitivity, Double Vision Ears, nose, mouth, throat: DENIES: Tinnitus, Hearing loss, Vertigo, Nasal discharge, Oral lesions, Throat pain, Hoarseness, Ear Pain, Running Nose, Epistaxis, Sinus Pain, Toothache, Odynophagia Respiratory: DENIES: Apneas, Cough, Snoring, Wheezing, Hemoptysis, Sputum production, Shortness of breath Cardiovascular: DENIES: Chest pain, Palpitations, Syncope, Dyspnea on Exertion , PND, Lower Extremity Edema, Orthopnea, Claudication Gastrointestinal: DENIES: Abdominal pain, Black stools, Bloody stools, Constipation, Diarrhea, Nausea, Vomiting, Difficulty Swallowing, Anorexia Genitourinary: DENIES: Abnormal vaginal bleeding, Dysmenorrhea, Dyspareunia, Sexual dysfunction, Urinary frequency, Urinary incontinence, Urgency, Hematuria , Dysuria, Nocturia, Vaginal discharge Musculoskeletal: COMPLAINS OF: Back pain Integumentary: DENIES: Abnormal pigmentation, Pruritus, Rash, Nail changes, Breast masses, Breast skin changes, Nipple discharge Hematologic/lymphatic: DENIES: Bruising, Lymphadenopathy Immunologic/allergic: DENIES: Eczema, Urticaria Neurologic: DENIES: Abnormal gait, Headache, Localized weakness, Paresthesias, Seizures, Speech Problems, Tremor, Poor Balance Psychiatric: COMPLAINS OF: Anxiety Past Family Social History Past Medical History Recurrent thyroid cancer Breast cancer, on anastrozole, no chemotherapy Hypertension Diabetes Rheumatoid arthritis History of A. fib CAD, history of stent Hypothyroidism Past Surgical History Appendectomy Thyroidectomy Tonsillectomy Allergies: Coded Allergies: ibuprofen (Unverified Allergy, Severe, BLOOD LOSS, 08/30/17) oxycodone (Unverified Allergy, Severe, SHORTNESS OF BREATH, 08/30/17) hydrocodone (Unverified Adverse Reaction, Severe, "WAS TO STRONG", 08/30/17 ) Influenza Virus Vaccines (Unverified Adverse Reaction, Intermediate, Hives , 08/30/17) Active Ordered Medications Current Medications Medications (Trade) Dose Ordered Sig/Annabelle Route Start Time Stop Time Status Last Admin (NS Flush) 2 ml UNSCH PRN IV FLUSH 08/30/17 11:15 (NS Flush) 2 ml BID IV FLUSH 08/30/17 21:00 08/30/17 22:19 (Zofran Inj) 4 mg Q6H PRN IVP 08/30/17 11:15 (Morphine Inj) 2 mg Q6H PRN IV PUSH 08/30/17 11:15 08/30/17 14:44 (Dilaudid) 1 mg Q4H PRN PO 08/30/17 11:15 08/30/17 22:18 (Narcan Inj) 0.4 mg UNSCH PRN IV PUSH 08/30/17 11:15 (Ana-Colace) 1 tab BID PO 08/30/17 21:00 08/30/17 22:19 (Milk Of Magnesia Liq) 30 ml Q12H PRN PO 08/30/17 11:15 (Senokot) 17.2 mg Q12H PRN PO 08/30/17 11:15 (Dulcolax Supp) 10 mg DAILY PRN RECTAL 08/30/17 11:15 (Lactulose Liq) 30 ml DAILY PRN PO 08/30/17 11:15 (Duoneb Neb) 1 ampule Q2HR NEB PRN NEB 08/30/17 11:15 (Vasotec Inj) 2.5 mg Q6H PRN IV PUSH 08/30/17 11:15 08/31/17 05:13 (Apresoline) 25 mg Q8HR PRN PO 08/30/17 11:15 08/31/17 00:39 (Multaq) 400 mg BID PO 08/30/17 21:00 08/30/17 22:19 (Plaquenil) 200 mg DAILY PO 08/31/17 09:00 (Synthroid) 150 mcg DAILY@0600 PO 08/31/17 06:00 08/31/17 05:13 (Cozaar) 100 mg DAILY PO 08/31/17 09:00 (Lopressor) 25 mg BID PO 08/30/17 21:00 08/30/17 22:19 (D50w (Vial) Inj) 50 ml UNSCH PRN IV PUSH 08/30/17 11:45 (Glucagon Inj) 1 mg UNSCH PRN OTHER 08/30/17 11:45 (NovoLOG SUPPLEMENTAL SCALE) 1 ACHS SLIDING SCALE SQ 08/30/17 12:00 (Tylenol) 650 mg Q4H PRN PO 08/30/17 11:45 Reported Meds & Active Scripts Active Ventolin Hfa 18 GM Inh (Albuterol Sulfate) 90 Mcg/Act Aer 2 Puff INH Q4-6H PRN Reported Hydrocodone-Acetaminophen 5-325 mg Tab 1 Tab PO Q4H PRN Multiple Vitamin 1 Tab 1 Tab PO DAILY Multaq (Dronedarone) 400 Mg Tab 400 Mg PO BID Folic Acid 1 Mg Tablet 1 Mg PO DIRECTED Metformin (Metformin HCl) 500 Mg Tab 1,000 Mg PO DAILY With a meal Aspirin 81 Mg Chew 81 Mg CHEW DAILY Omeprazole 20 Mg Tab 20 Mg PO DAILY Prolia Inj (Denosumab) 60 Mg/Ml Inj 60 Mg SQ Q180D Oyster Shell Calcium (Calcium Carbonate-Cholecalciferol) 500-400 Mg-Unit Tab 1 Tab PO DAILY Clopidogrel (Clopidogrel Bisulfate) 75 Mg Tab 75 Mg PO DAILY Methotrexate 2.5 Mg Tab 17.5 Injection INJ Q7D Hydroxychloroquine (Hydroxychloroquine Sulfate) 200 Mg Tab 200 Mg PO DAILY Takw with food Metoprolol Tartrate 25 Mg Tab 25 Mg PO BID Losartan (Losartan Potassium) 100 Mg Tab 100 Mg PO DAILY Synthroid (Levothyroxine Sodium) 150 Mcg Tab 150 Mcg PO DAILY Family History Family history positive for diabetes, CAD Social History Denies any tobacco, alcohol or illicit drug intake Physical Exam Vital Signs Vital Signs Date Time Temp Pulse Resp B/P (MAP) Pulse Ox O2 Delivery O2 Flow Rate FiO2 08/31/17 07:27 97.9 82 20 204/93 (130) 95 Manual Cuff/Auscultation 08/31/17 04:44 98.2 81 17 195/86 (122) 94 08/31/17 00:31 98.3 80 17 187/88 (121) 95 08/30/17 22:09 98.5 85 19 171/84 (113) 92 08/30/17 17:56 158/84 (108) 08/30/17 17:36 98.5 94 20 191/88 (122) 91 08/30/17 16:40 97.5 82 19 180/84 (116) 95 08/30/17 16:24 81 18 168/72 (104) 98 08/30/17 16:22 82 18 168/72 08/30/17 16:02 98.3 79 18 170/72 96 08/30/17 15:49 18 08/30/17 15:44 98.2 82 18 167/83 97 08/30/17 12:00 74 20 175/86 (115) 98 Room Air 08/30/17 10:35 18 08/30/17 08:48 97.5 109 17 213/108 (143) 97 Physical Exam HEENT: Normocephalic atraumatic pupils equal round reactive. NECK: Supple. No abnormal masses. Full range of motion. CHEST: Clear to auscultation with no rales or rhonchi's or wheezes. HEART: Regular rate and rhythm. No murmurs. ABDOMEN: Soft, nontender, no masses. Normal active bowel sounds. GENITOURINARY: Deferred MUSCULOSKELETAL: This patient has great difficulty even rolling over in bed. She screams out in pain. She is unable to sit. She is unable to ambulate. She has significant tenderness in the mid portion of her low back in the region of the upper lumbar spine. Moderate spasm. No skin changes. Pelvis is level. Motor examination both legs is normal Laboratory Laboratory Tests Test 08/30/17 09:40 08/31/17 06:15 White Blood Count 13.0 Red Blood Count 4.35 Hemoglobin 13.2 Hematocrit 38.4 Mean Corpuscular Volume 88.3 Mean Corpuscular Hemoglobin 30.4 Mean Corpuscular Hemoglobin Concent 34.4 Red Cell Distribution Width 16.0 Platelet Count 432 Mean Platelet Volume 7.4 Neutrophils (%) (Auto) 88.0 Lymphocytes (%) (Auto) 3.2 Monocytes (%) (Auto) 8.1 Eosinophils (%) (Auto) 0.6 Basophils (%) (Auto) 0.1 Neutrophils # (Auto) 11.4 Lymphocytes # (Auto) 0.4 Monocytes # (Auto) 1.1 Eosinophils # (Auto) 0.1 Basophils # (Auto) 0.0 CBC Comment DIFF FINAL Differential Comment Blood Urea Nitrogen 16 Creatinine 0.86 Random Glucose 271 Total Protein 7.0 Albumin 3.2 Calcium Level 8.6 Alkaline Phosphatase 97 Aspartate Amino Transf (AST/SGOT) 14 Alanine Aminotransferase (ALT/SGPT) 22 Total Bilirubin 0.5 Sodium Level 128 Potassium Level 4.6 Chloride Level 92 Carbon Dioxide Level 25.5 Anion Gap 11 Estimat Glomerular Filtration Rate 63 Result Diagram: 08/30/1740 08/30/17 0940 Imaging Review of x-rays from [facility], x-rays from orthopedic clinic in [place] and recent MRI scan from yesterday shows evidence of recent fracture at L1 with 50% compression. Minimal retropulsion. No significant spinal stenosis. A chronic compression fracture of L5 is seen which is unchanged compared to previous radiographs. Moderate degenerative changes Assessment & Plan Assessment and Plan Compression fracture of L1, acute. Intractable back pain. PLAN: Continued conservative care for this condition will not likely make a significant difference. In my opinion, further conservative care is not warranted and surgical treatment for kyphoplasty meets appropriate criteria for such severe pain and acute environment. Consent: There are risks with surgery including infection, bleeding, loss of motion, continued pain. The patient has been on Plavix. She was given platelets anticipating possible surgical treatment. Even as a percutaneous procedure, she is at risk of bleeding in the region of the spine and the use of that treatment is reasonable. Surgery if we can organize that today. Surgery: Kyphoplasty of L1 Sourav Bryant MD Aug 31, 2017 07:52
[2017-08-31] MEDS: INSULIN ASPART SUPPLEMENTAL SCALE SQ SCH ×3 (08:00→21:00)
[2017-08-31 08:01] VITALS: BP 189/90
[2017-08-31 08:24] LABS: ALBUMIN 2.8 GM/DL (3.4-5.0); ALKALINE PHOSPHATASE 90 U/L (45-117); ALT (GPT) 24 U/L (10-53); AST (GOT) 29 U/L (15-37); BICARBONATE 27.8 MEQ/L (21.0-32.0); BLOOD UREA NITROGEN 12 MG/DL (7-18); CALCIUM 8.2 MG/DL (8.5-10.1); CHLORIDE 91 MEQ/L (98-107); CREATININE 0.56 MG/DL (0.50-1.00); GLOMERULAR FILTRATION RATE 103 ML/MIN (>89); GLUCOSE,RANDOM 156 MG/DL (74-106); SODIUM (NA) 128 MEQ/L (136-145); TOTAL BILIRUBIN ADULT 0.6 MG/DL (0.2-1.0); TOTAL PROTEIN 6.4 GM/DL (6.4-8.2)
[2017-08-31] MEDS ORDERED: ceFAZolin INJ 1,000 MG VIAL IV ONE ×2 (09:46→12:00)
[2017-08-31] MEDS ORDERED: IOHEXOL 350 MG/ML 100 ML BTL (for RAD DIAG) OTHER ONE (09:48)
--- NOTE | 2017-08-31 09:56 | PD.OP ---
cc: Sourav Bryant MD Operative Report Date of Surgery: Aug 31, 2017 Preoperative Diagnosis: Compression fracture L1, acute. Intractable low back pain Postoperative Diagnosis: Same Procedure: Kyphoplasty of L1 Anesthesia: MAC Surgeon: Sourav Bryant Vamp Presser(s): Staff Operation and Findings: EBL: Minimal cc INDICATION: This patient is an 82-year-old female with intractable back pain that started almost 2 weeks ago. The patient is unable to ambulate. She was scheduled for outpatient surgery but could not wait. She presented to the emergency room with such intractable back pain. The patient is unable to get out of bed or roll over. She has an acute fracture at L1 seen on MRI scan. X- rays gone from a minimal compression fracture to a 60% compression fracture in the period of about 5 days. She in my opinion is a candidate for kyphoplasty. PROCEDURE: The patient was brought to the operating room and given light sedation.. The patient was allowed to rolled to a prone position on a well- padded radiolucent table. All pressure points were protected in the back was scrubbed with alcohol followed by Hibiclens followed by ChloraPrep and draped sterilely. A timeout was done and antibiotics were given. AP and lateral radiographic images were used to identify the proper levels and perform skin markings. We started from the left side at the L1 level. Local anesthesia was utilized. A small incision was made. An awl was placed down through the skin subcutaneous tissue and muscle down to the end of the facet joint. This is placed through the pedicle controlling this under AP and lateral images. A proper size balloon was placed through this allowing correction of the deformity. On the back table methylmethacrylate was mixed. After approximately 11 minutes it was injected at this region. We had no extravasation. The cement was allowed harden. The tubes were removed. Intraoperative x-rays were obtained in AP and lateral plane. The wound was irrigated anesthetized and closed with 4-0 Vicryl followed by Dermabond. The sponge count and needle counts and instrument counts were all correct. The patient tolerated the procedure well as taken to the recovery room in satisfactory condition. FINDINGS: There was evidence of a severe acute compression fracture. Just positioning on the table this went to almost a normal alignment from about a 60 % compression fracture. This is seen in patients who have gross motion across a fracture which is noted to be very painful. She has a good chance of doing very well or there was no complication that was appreciated Sourav Bryant MD Aug 31, 2017 09:56
[2017-08-31] MEDS ORDERED: ACETAMINOPHEN/HYDROcodone 325 MG/7.5 MG TAB PO PRN ×2 (10:00)
[2017-08-31] MEDS ORDERED: DO NOT ADM ANY ANTICOAGULANT DRUGS PRN (10:07)
[2017-08-31] MEDS ORDERED: *LABETALOL HCL 100 MG/20 ML VIAL PERIprocedural Use ONLY ONE (10:18)
[2017-08-31] MEDS: LACTATED RINGER'S 1000 ML INJ 1,000 ML IV SCH ×2 (10:30→15:11)
[2017-08-31] MEDS ORDERED: ONDANSETRON HCL 4 MG/2 ML VIAL IV PUSH PRN (10:30)
[2017-08-31] MEDS ORDERED: BISACODYL 10 MG SUPP RECTAL PRN (10:30)
[2017-08-31] MEDS ORDERED: *ONDANSETRON 4 MG VIAL PERIprocedural Use ONLY ONE (10:35)
--- NOTE | 2017-08-31 10:43 | RADRPT ---
EXAM DATE/TIME: 08/31/2017 09:46 [facility] COMPARISON: No previous studies available for comparison. INDICATIONS : Post-op kyphoplasty for L1 compression fracture. MEDICAL HISTORY : None. SURGICAL HISTORY : None. ENCOUNTER: Subsequent ACUITY: 2 days PAIN SCORE: Non-responsive. LOCATION: Thoracolumbar spine. FINDINGS: AP and lateral views of the upper lumbar spine demonstrate bone cement within the L1 vertebral body f ollowing kyphoplasty. The cement is well-contained within the vertebral body. Lumbar alignment is wel l maintained. CONCLUSION: Status post L1 kyphoplasty without evidence of acute or significant complication. Raymundo Singer MD on August 31, 2017 at 10:39 Board Certified Radiologist. This report was verified electronically.
[2017-08-31] MEDS ORDERED: *morphine SULFATE 8 MG/ML PERIprocedure ONLY ONE (10:55)
[2017-08-31] MEDS ORDERED: GLYCOPYRROLATE 1 MG/5 ML SYRINGE IV PUSH ONE (12:00)
[2017-08-31] MEDS ORDERED: ROCURONIUM INJ 50 MG/5 ML SYRINGE IV PUSH ONE (12:00)
[2017-08-31] MEDS ORDERED: PHENYLEPH/NS 1000 MCG/10 ML SYR IV ONE (12:00)
[2017-08-31] MEDS ORDERED: LIDOCAINE HCL 1% PF 5 ML SYRINGE OTHER ONE (12:00)
[2017-08-31] MEDS ORDERED: DEXAMETHASONE SOD PHOS 4 MG/ML VIAL IV ONE (12:00)
[2017-08-31] MEDS ORDERED: PROPOFOL 200 MG/20 ML AMP IV ONE (12:00)
[2017-08-31] MEDS ORDERED: NEOSTIGMINE 5 MG/5 ML SYRINGE IV PUSH ONE (12:00)
[2017-08-31] MEDS ORDERED: KETOROLAC TROMETHAMINE 30 MG/ML (IVP) VIAL IV PUSH ONE (12:00)
[2017-08-31] MEDS ORDERED: ONDANSETRON HCL 4 MG/2 ML VIAL IV ONE (12:00)
--- NOTE | 2017-08-31 12:53 | HHI.PR ---
Subjective Remarks in no acute distress. had Kyphoplasty earlier. denies pain at this time. d/w the RN. Objective Vitals Vital Signs Date Time Temp Pulse Resp B/P (MAP) Pulse Ox O2 Delivery O2 Flow Rate FiO2 08/31/17 10:30 92 20 154/78 (103) 96 Nasal Cannula 3 08/31/17 10:15 102 21 176/81 (112) 100 Nasal Cannula 3 08/31/17 10:06 98.6 105 24 164/81 (108) 98 Nasal Cannula 3 08/31/17 08:01 189/90 (123) 08/31/17 07:27 97.9 82 20 204/93 (130) 95 Manual Cuff/Auscultation 08/31/17 04:44 98.2 81 17 195/86 (122) 94 08/31/17 00:31 98.3 80 17 187/88 (121) 95 08/30/17 22:09 98.5 85 19 171/84 (113) 92 08/30/17 17:56 158/84 (108) 08/30/17 17:36 98.5 94 20 191/88 (122) 91 08/30/17 16:40 97.5 82 19 180/84 (116) 95 08/30/17 16:24 81 18 168/72 (104) 98 08/30/17 16:22 82 18 168/72 08/30/17 16:02 98.3 79 18 170/72 96 08/30/17 15:49 18 08/30/17 15:44 98.2 82 18 167/83 97 I/O 08/30/17 08/30/17 08/30/17 08/31/17 08/31/17 08/31/17 07:00 15:00 23:00 07:00 15:00 23:00 Intake Total 285 ml 700 ml Balance 285 ml 700 ml Intake Platelets 285 ml Other 700 ml # Voids 1 Result Diagram: 08/31/1761408/31/17614 Imaging Last Impressions Thoracolumbar Spine 08/31/17 0000 Signed Impressions: Service Date/Time: August 09:46 - CONCLUSION: Status post L1 kyphoplasty without evidence of acute or significant complication. Raymundo Singer MD Lumbar Spine MRI 08/30/17 0000 Signed Impressions: Service Date/Time: Wednesday, August 30, 2017 14:54 - CONCLUSION: Acute compression L1 total body height by approximately 20%% with minimal encroachment on the thecal sac. Ridge Swanson MD FACR Objective Remarks GENERAL: This is a well-nourished, well-developed patient, in no apparent distress. CARDIOVASCULAR: Regular rate and regular rhythm without murmurs, gallops, or rubs. RESPIRATORY: Clear to auscultation. Breath sounds equal bilaterally. No wheezes , rales, or rhonchi. GASTROINTESTINAL: Abdomen soft, non-tender, nondistended. Normal, active bowel sounds MUSCULOSKELETAL: Extremities without clubbing, cyanosis, or edema. NEURO: Alert & Oriented x4 to person, place, time, situation. Moves all ext x4 Medications and IVs Inpatient Medications Acetaminophen (Tylenol) 650 mg Q4H PRN PO Temp > 100.4; Start 08/30/17 at 11:45 Acetaminophen/ Hydrocodone Bitart ([place] 7.5-325 Mg) 2 tab Q6H PRN PO PAIN SCALE 6 TO 10; Start 08/31/17 at 10:00; Status UNV Albuterol/ Ipratropium (Duoneb Neb) 1 ampule Q2HR NEB PRN NEB SOB/WHEEZING; Start 08/30/17 at 11:15 Bisacodyl (Dulcolax Supp) 10 mg DAILY PRN RECTAL CONSTIPATION; Start 08/31/17 at 10:30 Cefazolin Sodium (Ancef Inj) 1,000 mg ONCE ONCE IV Last administered on at 09:47; Start 08/31/17 at 09:46; Stop 08/31/17 at 09:48; Status DC Dextrose (D50w (Vial) Inj) 50 ml UNSCH PRN IV PUSH HYPOGLYCEMIA-SEE COMMENTS; Start 08/30/17 at 11:45 Docusate Sodium (Colace) 100 mg BID PO ; Start 09/01/17 at 21:00 Dronedarone (Multaq) 400 mg BID PO Last administered on 08/30/17at 22:19; Start 08/30/17 at 21:00 Enalaprilat (Vasotec Inj) 2.5 mg Q6H PRN IV PUSH SBP>160, DBP>90 Last administered on 08/31/17at 05:13; Start 08/30/17 at 11:15 Glucagon (Glucagon Inj) 1 mg UNSCH PRN OTHER HYPOGLYCEMIA-SEE COMMENTS; Start 08/30/17 at 11:45 Hydralazine HCl (Apresoline) 25 mg Q8HR PRN PO SBP>160, DBP>90 Last administered on 08/31/17at 00:39; Start 08/30/17 at 11:15 Hydromorphone HCl (Dilaudid) 1 mg Q4H PRN PO PAIN SCALE 3 TO 5 Last administered on 08/31/17at 07:47; Start 08/30/17 at 11:15 Hydroxychloroquine Sulfate (Plaquenil) 200 mg DAILY PO ; Start 08/31/17 at 09:00 Insulin Aspart (NovoLOG SUPPLEMENTAL SCALE) 1 ACHS SLIDING SCALE SQ ; Start at 12:00 Iohexol (Omnipaque 350 Inj) 100 ml ONCE ONCE OTHER Last administered on at 09:51; Start 08/31/17 at 09:48; Stop 08/31/17 at 09:52; Status DC Lactated Ringer's 1,000 ml @ 80 mls/hr [id number] IV Last administered on at 10:30; Start 08/31/17 at 10:30 Lactulose (Lactulose Liq) 30 ml DAILY PRN PO SEVERE CONSITIPATION; Start at 11:15 Levothyroxine Sodium (Synthroid) 150 mcg DAILY@0600 PO Last administered on at 05:13; Start 08/31/17 at 06:00 Losartan Potassium (Cozaar) 100 mg DAILY PO Last administered on 08/31/17at 07: 47; Start 08/31/17 at 09:00 Magnesium Hydroxide (Milk Of Magnesia Liq) 30 ml Q12H PRN PO Mild constipation ; Start 08/30/17 at 11:15 Metoprolol Tartrate (Lopressor) 25 mg BID PO Last administered on 08/31/17at 07: 47; Start 08/30/17 at 21:00 Miscellaneous Information ALL NURSING DEPARTME... UNSCH PRN .XX SEE LABEL COMMENTS; Start 08/31/17 at 10:07; Stop 09/01/17 at 10:06 Morphine Sulfate (Morphine Inj) 2 mg Q6H PRN IV PUSH BREAKTHROUGH PAIN Last administered on 08/30/17at 14:44; Start 08/30/17 at 11:15 Naloxone HCl (Narcan Inj) 0.4 mg UNSCH PRN IV PUSH SEE LABEL COMMENTS; Start at 11:15 Ondansetron HCl (Zofran Inj) 4 mg Q6H PRN IV PUSH NAUSEA OR VOMITING; Start at 10:30 Senna/Docusate Sodium (Ana-Colace) 1 tab BID PO Last administered on at 07:47; Start 08/30/17 at 21:00 Sennosides (Senokot) 17.2 mg Q12H PRN PO Moderate constipation; Start 08/30/17 at 11:15 Sodium Chloride (NS Flush) 2 ml BID IV FLUSH Last administered on 08/31/17at 07: 47; Start 08/30/17 at 21:00 A/P Problem List: (1) Compression fracture of L1 lumbar vertebra ICD Code: S32.010A - Wedge compression fracture of first lumbar vertebra, initial encounter for closed fracture Status: Acute (2) Intractable back pain ICD Code: M54.9 - Dorsalgia, unspecified Status: Acute Assessment and Plan A/P Compression fracture of L1 lumbar vertebra Intractable back pain s/p L1 Kyphoplasty continue with pain control and PT DVT prophylaxis postprocedure per orthopedic surgery Diabetes type 2 Labile blood glucose Hold metformin, start insulin sliding scale and check hemoglobin A1c History of hypertension, atrial fibrillation and other chronic medical conditions Aspirin and Plavix on hold, and resumed outpatient medications will resume antiplatelets when ok with ortho. Leukocytosis Likely stress reactive - has resolved hyponatremia- chronic- asymptomatic- will monitor DVT prophylaxis: per orthopedic surgery Marco Richards MD Aug 31, 2017 12:53
[2017-08-31 16:00] VITALS: BP 127/65; PULSE 99; RESP 18; TEMP 97.8; O2SAT 98
[2017-08-31 18:10] LABS: HEMOGLOBIN A1C 6.9 % (4.3-6.0)
[2017-08-31 20:40] VITALS: BP 109/73; PULSE 100; RESP 17; TEMP 97.6; O2SAT 96
[2017-09-01] VITALS: BP 152/74; PULSE 106; RESP 17; TEMP 97.9; O2SAT 9
[2017-09-01] MEDS: METOPROLOL TARTRATE 25 MG TAB PO SCH ×3 (00:43→21:08)
[2017-09-01] MEDS: SODIUM CHLORIDE 0.9% FLUSH 10 ML FLUSH IV FLUSH SCH ×3 (00:45→21:00)
[2017-09-01] MEDS: DRONEDARONE 400 MG TAB PO SCH ×3 (01:07→21:08)
[2017-09-01] MEDS: LEVOTHYROXINE SODIUM 150 MCG TAB PO SCH (04:02)
[2017-09-01] MEDS: HYDROmorphone HCL 2 MG TAB PO PRN ×2 (04:04→21:08)
[2017-09-01 04:45] VITALS: PULSE 86; RESP 18; TEMP 97.7; O2SAT 97
--- NOTE | 2017-09-01 07:35 | PD.ORT.PN ---
Subjective Subjective Remarks Doing 'much better'. Back pain is much improved. No new leg pain. No SOB. Pleased overall. Many questions about surgery. Objective Vitals Vital Signs Date Time Temp Pulse Resp B/P (MAP) Pulse Ox O2 Delivery O2 Flow Rate FiO2 09/01/17 04:45 97.7 86 18 97 09/01/17 00:00 97.9 106 17 152/74 (100) 9 08/31/17 20:40 97.6 100 17 109/73 (85) 96 08/31/17 16:00 97.8 99 18 127/65 (85) 98 08/31/17 13:00 96 14 133/73 (93) 93 Nasal Cannula 3 08/31/17 12:00 98.6 87 17 138/83 (101) 100 Nasal Cannula 3 08/31/17 11:30 86 16 130/81 (97) 99 Nasal Cannula 3 08/31/17 11:00 85 21 137/81 (99) 100 Nasal Cannula 3 08/31/17 10:45 88 24 159/77 (104) 100 Nasal Cannula 3 08/31/17 10:30 92 20 154/78 (103) 96 Nasal Cannula 3 08/31/17 10:15 102 21 176/81 (112) 100 Nasal Cannula 3 08/31/17 10:06 98.6 105 24 164/81 (108) 98 Nasal Cannula 3 08/31/17 08:01 189/90 (123) I/O 08/31/17 08/31/17 08/31/17 09/01/17 09/01/17 09/01/17 07:00 15:00 23:00 07:00 15:00 23:00 Intake Total 700 ml 0 ml Balance 700 ml 0 ml Intake Oral 0 ml Other 700 ml # Voids 2 2 # Bowel Movements 0 Result Diagram: 08/31/17 0615 08/31/17 0615 Objective Remarks Laying in bed NAD VSS L/S Small dressing c/d/i, no drainage, minimal swelling, no erythema +motor quad, +sens, +nvi Neg homans bilat Assessment & Plan Ortho Post Op Day #: 1 Problem List: Assessment and Plan pod#1 s/p Kypho L1 Compression fracture of L1, acute. Intractable back pain. Ortho stable. Pain much improved. PO meds as needed. WBAT w walker/cane as needed. Ok to change dressing tomorrow. Ok to shower at that time. Incision glued. Medical care. Ok to d/c per ortho when stable. F/U at 2 weeks postop. Alka Gaines Sep 01, 2017 07:35
[2017-09-01] MEDS ORDERED: WALKER WHEELS/F1 MIS (07:36)
[2017-09-01 08:00] VITALS: BP 175/81; PULSE 86; RESP 20; TEMP 97.3; O2SAT 98
[2017-09-01] MEDS: INSULIN ASPART SUPPLEMENTAL SCALE SQ SCH ×4 (09:21→21:00)
[2017-09-01] MEDS: LACTATED RINGER'S 1000 ML INJ 1,000 ML IV SCH ×2 (09:22→21:00)
[2017-09-01] MEDS: HYDROXYCHLOROQUINE SULFATE 200 MG TAB PO SCH (09:22)
[2017-09-01] MEDS: LOSARTAN 50 MG TAB PO SCH (09:22)
[2017-09-01] MEDS: DOCUSATE SODIUM 50 MG/SENNA 8.6 MG TAB PO SCH ×2 (09:22→21:08)
[2017-09-01 12:00] VITALS: BP 165/80; PULSE 88; RESP 18; TEMP 98; O2SAT 98
[2017-09-01 16:00] VITALS: BP 169/77; PULSE 79; RESP 18; TEMP 95.6; O2SAT 100
--- NOTE | 2017-09-01 16:04 | HHI.PR ---
Subjective Remarks Patient is somewhat confused. States she has some hip pain but pain medication helps. In no acute distress, worked with PT well. Objective Vitals Vital Signs Date Time Temp Pulse Resp B/P (MAP) Pulse Ox O2 Delivery O2 Flow Rate FiO2 09/01/17 12:00 98.0 88 18 165/80 (108) 98 09/01/17 08:00 97.3 86 20 175/81 (112) 98 09/01/17 04:45 97.7 86 18 97 09/01/17 00:00 97.9 106 17 152/74 (100) 9 08/31/17 20:40 97.6 100 17 109/73 (85) 96 08/31/17 16:00 97.8 99 18 127/65 (85) 98 I/O 08/31/17 08/31/17 08/31/17 09/01/17 09/01/17 09/01/17 07:00 15:00 23:00 07:00 15:00 23:00 Intake Total 700 ml 0 ml Balance 700 ml 0 ml Intake Oral 0 ml Other 700 ml # Voids 2 2 # Bowel Movements 0 Result Diagram: 08/31/17 0615 08/31/17 0615 Objective Remarks GENERAL: This is a well-nourished, well-developed patient, in no apparent distress. CARDIOVASCULAR: Regular rate and regular rhythm without murmurs, gallops, or rubs. RESPIRATORY: Clear to auscultation. Breath sounds equal bilaterally. No wheezes , rales, or rhonchi. GASTROINTESTINAL: Abdomen soft, non-tender, nondistended. Normal, active bowel sounds MUSCULOSKELETAL: Extremities without clubbing, cyanosis, or edema. NEURO: Alert & Oriented x4 to person, place, time, situation. Moves all ext x4 Medications and IVs Current Medications Medications (Trade) Dose Ordered Sig/Annabelle Route Start Time Stop Time Status Last Admin (NS Flush) 2 ml UNSCH PRN IV FLUSH 08/30/17 11:15 (NS Flush) 2 ml BID IV FLUSH 08/30/17 21:00 09/01/17 00:45 (Zofran Inj) 4 mg Q6H PRN IVP 08/30/17 11:15 (Morphine Inj) 2 mg Q6H PRN IV PUSH 08/30/17 11:15 08/30/17 14:44 (Dilaudid) 1 mg Q4H PRN PO 08/30/17 11:15 09/01/17 04:04 (Narcan Inj) 0.4 mg UNSCH PRN IV PUSH 08/30/17 11:15 (Ana-Colace) 1 tab BID PO 08/30/17 21:00 09/01/17 09:22 (Milk Of Magnesia Liq) 30 ml Q12H PRN PO 08/30/17 11:15 (Senokot) 17.2 mg Q12H PRN PO 08/30/17 11:15 (Dulcolax Supp) 10 mg DAILY PRN RECTAL 08/30/17 11:15 (Lactulose Liq) 30 ml DAILY PRN PO 08/30/17 11:15 (Duoneb Neb) 1 ampule Q2HR NEB PRN NEB 08/30/17 11:15 (Vasotec Inj) 2.5 mg Q6H PRN IV PUSH 08/30/17 11:15 08/31/17 05:13 (Apresoline) 25 mg Q8HR PRN PO 08/30/17 11:15 08/31/17 00:39 (Multaq) 400 mg BID PO 08/30/17 21:00 09/01/17 09:22 (Plaquenil) 200 mg DAILY PO 08/31/17 09:00 09/01/17 09:22 (Synthroid) 150 mcg DAILY@0600 PO 08/31/17 06:00 09/01/17 04:02 (Cozaar) 100 mg DAILY PO 08/31/17 09:00 09/01/17 09:22 (Lopressor) 25 mg BID PO 08/30/17 21:00 09/01/17 09:22 (D50w (Vial) Inj) 50 ml UNSCH PRN IV PUSH 08/30/17 11:45 (Glucagon Inj) 1 mg UNSCH PRN OTHER 08/30/17 11:45 (NovoLOG SUPPLEMENTAL SCALE) 1 ACHS SLIDING SCALE SQ 08/30/17 12:00 09/01/17 12:55 (Tylenol) 650 mg Q4H PRN PO 08/30/17 11:45 Lactated Ringer's 1,000 ml @ 80 mls/hr [id number] IV 08/31/17 10:30 08/31/17 10:30 (Zofran Inj) 4 mg Q6H PRN IV PUSH 08/31/17 10:30 (Colace) 100 mg BID PO 09/01/17 21:00 (Dulcolax Supp) 10 mg DAILY PRN RECTAL 08/31/17 10:30 Urinary Catheter: No Vascular Central Line Catheter: No A/P Problem List: (1) Compression fracture of L1 lumbar vertebra ICD Code: S32.010A - Wedge compression fracture of first lumbar vertebra, initial encounter for closed fracture Status: Acute (2) Intractable back pain ICD Code: M54.9 - Dorsalgia, unspecified Status: Acute Assessment and Plan Compression fracture of L1 lumbar vertebra Intractable back pain -s/p L1 Kyphoplasty -continue with pain control and PT -DVT prophylaxis postprocedure per orthopedic surgery Diabetes type 2 -Cont Accu checks with SSI -hemoglobin A1c 6.9 History of hypertension, atrial fibrillation and other chronic medical conditions -Aspirin and Plavix on hold, and resumed outpatient medications -will resume antiplatelets when ok with ortho. Leukocytosis -Likely stress reactive - has resolved hyponatremia- chronic -Fluid restriction -BMP in am DVT prophylaxis: per orthopedic surgery Discharge Planning Patient lives alone and will need SNF placement, Family wishes to have indigo Problem Qualifiers (1) Compression fracture of L1 lumbar vertebra: Qualified Codes: S32.010A - Wedge compression fracture of first lumbar vertebra , initial encounter for closed fracture Hillary Berman Sep 01, 2017 16:04
[2017-09-01] MEDS: hydrALAZINE HCL 25 MG TAB PO PRN (18:40)
[2017-09-01 20:40] VITALS: BP 161/74; PULSE 84; RESP 18; TEMP 97.4; O2SAT 98
[2017-09-01] MEDS: DOCUSATE SODIUM 100 MG CAP PO SCH (21:08)
[2017-09-02 00:45] VITALS: BP 164/78; PULSE 72; RESP 17; TEMP 97.4; O2SAT 98
[2017-09-02 04:50] VITALS: BP 168/79; PULSE 82; RESP 17; TEMP 97.6; O2SAT 97
[2017-09-02] MEDS: LEVOTHYROXINE SODIUM 150 MCG TAB PO SCH (05:54)
[2017-09-02] MEDS: hydrALAZINE HCL 25 MG TAB PO PRN (05:54)
[2017-09-02] MEDS: HYDROmorphone HCL 2 MG TAB PO PRN ×3 (05:55→17:20)
[2017-09-02 08:00] VITALS: BP 154/74; PULSE 97; RESP 18; TEMP 97.7; O2SAT 97
[2017-09-02 08:00] LABS: BICARBONATE 26.1 MEQ/L (21.0-32.0); CALCIUM 7.8 MG/DL (8.5-10.1); CREATININE 0.46 MG/DL (0.50-1.00)
[2017-09-02] MEDS: INSULIN ASPART SUPPLEMENTAL SCALE SQ SCH ×4 (08:00→21:16)
[2017-09-02] MEDS: SODIUM CHLORIDE 0.9% FLUSH 10 ML FLUSH IV FLUSH SCH ×2 (09:00→21:16)
[2017-09-02] MEDS: MAGNESIUM HYDROXIDE SUSP 30 ML CUP PO PRN (11:32)
[2017-09-02] MEDS: DRONEDARONE 400 MG TAB PO SCH ×2 (11:32→21:16)
[2017-09-02] MEDS: SENNOSIDES 8.6 MG TAB PO PRN (11:32)
[2017-09-02] MEDS: DOCUSATE SODIUM 100 MG CAP PO SCH ×2 (11:32→21:16)
[2017-09-02] MEDS: DOCUSATE SODIUM 50 MG/SENNA 8.6 MG TAB PO SCH ×2 (11:32→21:16)
[2017-09-02] MEDS: LOSARTAN 50 MG TAB PO SCH (11:32)
[2017-09-02] MEDS: METOPROLOL TARTRATE 25 MG TAB PO SCH ×2 (11:32→21:16)
[2017-09-02] MEDS: HYDROXYCHLOROQUINE SULFATE 200 MG TAB PO SCH (11:33)
[2017-09-02 12:00] VITALS: BP 166/73; PULSE 88; RESP 18; TEMP 97.6; O2SAT 97
[2017-09-02] MEDS: LACTATED RINGER'S 1000 ML INJ 1,000 ML IV SCH (12:30)
[2017-09-02 16:00] VITALS: BP 127/69; PULSE 95; RESP 19; TEMP 97.5; O2SAT 96
--- NOTE | 2017-09-02 18:17 | HHI.PR ---
Subjective Remarks Pt complaining of pain w moving. States that when she stays still she feels ok, but is afraid to move around due to pain. Doesn't remember if she worked w PT today. Doesn't know the year, knows where she is and knows what city and state she is. She is however very forgetful Objective Vitals Vital Signs Date Time Temp Pulse Resp B/P (MAP) Pulse Ox O2 Delivery O2 Flow Rate FiO2 09/02/17 16:00 97.5 95 19 127/69 (88) 96 09/02/17 12:00 97.6 88 18 166/73 (104) 97 09/02/17 08:00 97.7 97 18 154/74 (100) 97 09/02/17 04:50 97.6 82 17 168/79 (108) 97 09/02/17 00:45 97.4 72 17 164/78 (106) 98 09/01/17 20:40 97.4 84 18 161/74 (103) 98 I/O 09/01/17 09/01/17 09/01/17 09/02/17 09/02/17 09/02/17 07:00 15:00 23:00 07:00 15:00 23:00 Intake Total 0 ml 150 ml 360 ml 240 ml Balance 0 ml 150 ml 360 ml 240 ml Intake Oral 0 ml 150 ml 360 ml 240 ml # Voids 2 2 1 3 # Bowel Movements 0 0 Result Diagram: 08/31/17 0615 09/02/17 0649 Imaging Last Impressions Thoracolumbar Spine 08/31/17 0000 Signed Impressions: Service Date/Time: August 09:46 - CONCLUSION: Status post L1 kyphoplasty without evidence of acute or significant complication. Raymundo Singer MD Lumbar Spine MRI 08/30/17 0000 Signed Impressions: Service Date/Time: Wednesday, August 30, 2017 14:54 - CONCLUSION: Acute compression L1 total body height by approximately 20%% with minimal encroachment on the thecal sac. Ridge Swanson MD FACR Objective Remarks GENERAL: elderly female, pleasantly confused. CARDIOVASCULAR: Regular rate and regular rhythm without murmurs RESPIRATORY: Clear to auscultation. Breath sounds equal bilaterally. No wheezes GASTROINTESTINAL: Abdomen soft, non-tender, nondistended. MUSCULOSKELETAL: laying on her right side A/P Problem List: (1) Compression fracture of L1 lumbar vertebra ICD Code: S32.010A - Wedge compression fracture of first lumbar vertebra, initial encounter for closed fracture Status: Acute (2) Intractable back pain ICD Code: M54.9 - Dorsalgia, unspecified Status: Acute Assessment and Plan Compression fracture of L1 lumbar vertebra Intractable back pain -s/p L1 Kyphoplasty -continue with pain control and PT -DVT prophylaxis postprocedure per orthopedic surgery Diabetes type 2 -Cont Accu checks with SSI -hemoglobin A1c 6.9 History of hypertension, atrial fibrillation and other chronic medical conditions -Aspirin and Plavix on hold, and resumed outpatient medications -will resume antiplatelets when ok with ortho. Leukocytosis -Likely stress reactive - has resolved hyponatremia- chronic-improved and stable -Fluid restriction -BMP in am DVT prophylaxis: per orthopedic surgery Discharge Planning Pt will require rehab upon d/c. Problem Qualifiers (1) Compression fracture of L1 lumbar vertebra: Qualified Codes: S32.010A - Wedge compression fracture of first lumbar vertebra , initial encounter for closed fracture Lillian Blanc MD Sep 02, 2017 18:17
[2017-09-02 20:00] VITALS: BP 144/70; PULSE 97; RESP 17; TEMP 97.7; O2SAT 96
[2017-09-03] VITALS: BP 145/77; PULSE 70; RESP 16; TEMP 98; O2SAT 97
[2017-09-03] MEDS: LACTATED RINGER'S 1000 ML INJ 1,000 ML IV SCH ×3 (01:00→22:39)
[2017-09-03 04:00] VITALS: BP 160/79; PULSE 70; RESP 16; TEMP 98.2; O2SAT 97
[2017-09-03] MEDS: LEVOTHYROXINE SODIUM 150 MCG TAB PO SCH (06:21)
[2017-09-03] MEDS: INSULIN ASPART SUPPLEMENTAL SCALE SQ SCH ×4 (07:30→21:00)
[2017-09-03 08:00] VITALS: BP 177/81; PULSE 86; RESP 18; TEMP 97.5; O2SAT 95
[2017-09-03 08:00] LABS: BICARBONATE 26.6 MEQ/L (21.0-32.0); CALCIUM 7.5 MG/DL (8.5-10.1); CREATININE 0.46 MG/DL (0.50-1.00)
[2017-09-03] MEDS: SODIUM CHLORIDE 0.9% FLUSH 10 ML FLUSH IV FLUSH SCH ×2 (09:00→21:00)
[2017-09-03] MEDS: DOCUSATE SODIUM 100 MG CAP PO SCH ×2 (09:16→20:55)
[2017-09-03] MEDS: DRONEDARONE 400 MG TAB PO SCH ×2 (09:16→20:55)
[2017-09-03] MEDS: SENNOSIDES 8.6 MG TAB PO PRN (09:16)
[2017-09-03] MEDS: METOPROLOL TARTRATE 25 MG TAB PO SCH ×2 (09:17→20:55)
[2017-09-03] MEDS: MAGNESIUM HYDROXIDE SUSP 30 ML CUP PO PRN (09:17)
[2017-09-03] MEDS: HYDROXYCHLOROQUINE SULFATE 200 MG TAB PO SCH (09:17)
[2017-09-03] MEDS: DOCUSATE SODIUM 50 MG/SENNA 8.6 MG TAB PO SCH ×2 (09:17→20:55)
[2017-09-03] MEDS: LOSARTAN 50 MG TAB PO SCH (09:17)
[2017-09-03] MEDS: HYDROmorphone HCL 2 MG TAB PO PRN ×4 (09:18→20:56)
[2017-09-03 12:00] VITALS: BP 172/80; PULSE 71; RESP 18; TEMP 97.4; O2SAT 98
--- NOTE | 2017-09-03 15:12 | HHI.PR ---
Subjective Remarks Patient has been ambulating down the sims. Pain is much better controlled. Family at bedside. They would rather patient go to [facility]. Comfortable with rehab at this time instead of going home with home health Objective Vitals Vital Signs Date Time Temp Pulse Resp B/P (MAP) Pulse Ox O2 Delivery O2 Flow Rate FiO2 09/03/17 12:00 97.4 71 18 172/80 (110) 98 09/03/17 08:00 97.5 86 18 177/81 (113) 95 09/03/17 04:00 98.2 70 16 160/79 (106) 97 09/03/17 00:00 98.0 70 16 145/77 (99) 97 09/02/17 20:00 97.7 97 17 144/70 (94) 96 09/02/17 16:00 97.5 95 19 127/69 (88) 96 I/O 09/02/17 09/02/17 09/02/17 09/03/17 09/03/17 09/03/17 07:00 15:00 23:00 07:00 15:00 23:00 Intake Total 360 ml 240 ml Balance 360 ml 240 ml Intake Oral 360 ml 240 ml # Voids 2 3 1 3 # Bowel Movements 0 Result Diagram: 08/31/17 0615 09/03/17 0702 Imaging Last Impressions Thoracolumbar Spine 08/31/17 0000 Signed Impressions: Service Date/Time: August 09:46 - CONCLUSION: Status post L1 kyphoplasty without evidence of acute or significant complication. Raymundo Singer MD Lumbar Spine MRI 08/30/17 0000 Signed Impressions: Service Date/Time: Wednesday, August 30, 2017 14:54 - CONCLUSION: Acute compression L1 total body height by approximately 20%% with minimal encroachment on the thecal sac. Ridge Swanson MD FACR Objective Remarks GENERAL: elderly female, pleasantly confused but answers question. appears a lot more comfortable CARDIOVASCULAR: Regular rate and regular rhythm without murmurs RESPIRATORY: Clear to auscultation. Breath sounds equal bilaterally. No wheezes GASTROINTESTINAL: Abdomen soft, non-tender, nondistended. MUSCULOSKELETAL: sitting on recliner A/P Problem List: (1) Compression fracture of L1 lumbar vertebra ICD Code: S32.010A - Wedge compression fracture of first lumbar vertebra, initial encounter for closed fracture Status: Acute (2) Intractable back pain ICD Code: M54.9 - Dorsalgia, unspecified Status: Acute Assessment and Plan Compression fracture of L1 lumbar vertebra Intractable back pain -s/p L1 Kyphoplasty -continue with pain control and PT -DVT prophylaxis postprocedure per orthopedic surgery Pt is ambulating w walker and has been all day. Family would like rehab. CM assisting w d/c planning Diabetes type 2 -Cont Accu checks with SSI -hemoglobin A1c 6.9 History of hypertension, atrial fibrillation and other chronic medical conditions -Aspirin and Plavix on hold, and resumed outpatient medications -will resume antiplatelets when ok with ortho. -started her on amlodipine 5mg po daily as BP's elevated Leukocytosis -Likely stress reactive - has resolved hyponatremia- chronic-improved and stable -Fluid restriction -BMP in am DVT prophylaxis: per orthopedic surgery Discharge Planning Pt will require rehab upon d/c. anticipate d/c tomorrow Problem Qualifiers (1) Compression fracture of L1 lumbar vertebra: Qualified Codes: S32.010A - Wedge compression fracture of first lumbar vertebra , initial encounter for closed fracture Lillian Blanc MD Sep 03, 2017 15:12
[2017-09-03 16:00] VITALS: BP 126/71; PULSE 73; RESP 18; TEMP 97.9; O2SAT 97
[2017-09-03] MEDS: amLODIPine BESYLATE 5 MG TAB PO SCH (16:56)
[2017-09-03 19:00] VITALS: BP 149/67; PULSE 80; RESP 16; TEMP 98; O2SAT 97
[2017-09-03] MEDS: hydrALAZINE HCL 25 MG TAB PO PRN (22:32)
[2017-09-04] VITALS: BP 174/79; PULSE 63; RESP 20; TEMP 97.3; O2SAT 97
[2017-09-04 04:00] VITALS: BP 165/74; PULSE 81; RESP 18; TEMP 97.6; O2SAT 94
[2017-09-04] MEDS: LEVOTHYROXINE SODIUM 150 MCG TAB PO SCH (05:24)
[2017-09-04 06:00] LABS: BICARBONATE 26.2 MEQ/L (21.0-32.0); CALCIUM 7.6 MG/DL (8.5-10.1); CREATININE 0.48 MG/DL (0.50-1.00)
[2017-09-04] MEDS: SODIUM CHLORIDE 0.9% FLUSH 10 ML FLUSH IV FLUSH SCH (07:34)
[2017-09-04] MEDS: LACTATED RINGER'S 1000 ML INJ 1,000 ML IV SCH (07:34)
[2017-09-04] MEDS: DRONEDARONE 400 MG TAB PO SCH (07:54)
[2017-09-04] MEDS: DOCUSATE SODIUM 50 MG/SENNA 8.6 MG TAB PO SCH (07:55)
[2017-09-04] MEDS: METOPROLOL TARTRATE 25 MG TAB PO SCH (07:55)
[2017-09-04] MEDS: amLODIPine BESYLATE 5 MG TAB PO SCH (07:55)
[2017-09-04] MEDS: LOSARTAN 50 MG TAB PO SCH (07:55)
[2017-09-04] MEDS: DOCUSATE SODIUM 100 MG CAP PO SCH (07:55)
[2017-09-04] MEDS: HYDROmorphone HCL 2 MG TAB PO PRN ×3 (07:56→15:43)
[2017-09-04] MEDS: HYDROXYCHLOROQUINE SULFATE 200 MG TAB PO SCH (07:56)
[2017-09-04] MEDS: MAGNESIUM HYDROXIDE SUSP 30 ML CUP PO PRN (07:56)
[2017-09-04 07:58] VITALS: BP 177/81; PULSE 79; RESP 16; O2SAT 98
[2017-09-04] MEDS: INSULIN ASPART SUPPLEMENTAL SCALE SQ SCH ×3 (08:06→15:49)
[2017-09-04] MEDS ORDERED: metFORMIN HCL 500 MG TAB PO SCH (09:00)
[2017-09-04 12:07] VITALS: BP 114/67; PULSE 76; RESP 17; TEMP 97.6; O2SAT 97
[2017-09-04] MEDS ORDERED: AMLO5 PO (13:11)
[2017-09-04] MEDS ORDERED: TYLE325T PO (13:11)
--- NOTE | 2017-09-04 13:11 | HHI.DS ---
Discharge Summary Admission Date Sep 01, 2017 at 11:19 Discharge Date: Sep 04, 2017 Admitting Diagnosis Intractable back pain, compression fracture (1) Compression fracture of L1 lumbar vertebra ICD Code: S32.010A - Wedge compression fracture of first lumbar vertebra, initial encounter for closed fracture Status: Acute (2) Intractable back pain ICD Code: M54.9 - Dorsalgia, unspecified Status: Acute (3) HTN (hypertension) ICD Code: I10 - Essential (primary) hypertension Procedures Kyphoplasty Brief History - From Admission HPI from the admitting physician 82-year-old female with history of breast cancer, osteoporosis, intractable back pain, returns to the ED for evaluation of worsening intractable back pain and evaluation of L1 compression fracture found on an outside imaging study. Patient was recently in the ED August 25, 2017 and at the time, imaging study did not reveal any fracture. However patient states she continued to have severe pain and was sent to [facility] by her orthopedic surgeon. She states last night the pain was so severe that she could barely walk and needed help to go to the bathroom however denies any bladder or bowel dysfunction. She rated the pain 10 out of 10 in intensity, but currently stated the pain is stable. She denies any chest pain or shortness of breath. CBC/BMP: 08/31/17 0615 09/04/17 0438 Significant Findings Laboratory Tests Test 09/02/17 06:49 09/03/17 07:02 09/04/17 04:38 Creatinine 0.46 MG/DL (0.50-1.00) 0.46 MG/DL (0.50-1.00) 0.48 MG/DL (0.50-1.00) Random Glucose 172 MG/DL (74-106) 135 MG/DL (74-106) 162 MG/DL (74-106) Calcium Level 7.8 MG/DL (8.5-10.1) 7.5 MG/DL (8.5-10.1) 7.6 MG/DL (8.5-10.1) Sodium Level 135 MEQ/L (136-145) 133 MEQ/L (136-145) 134 MEQ/L (136-145) Chloride Level 97 MEQ/L (98-107) Imaging Last Impressions Thoracolumbar Spine 08/31/17 0000 Signed Impressions: Service Date/Time: August 09:46 - CONCLUSION: Status post L1 kyphoplasty without evidence of acute or significant complication. Raymundo Singer MD Lumbar Spine MRI 08/30/17 0000 Signed Impressions: Service Date/Time: Wednesday, August 30, 2017 14:54 - CONCLUSION: Acute compression L1 total body height by approximately 20%% with minimal encroachment on the thecal sac. Ridge Swanson MD FACR PE at Discharge GENERAL: Elderly female, no acute distress. CARDIOVASCULAR: Regular rate and regular rhythm without murmurs RESPIRATORY: Clear to auscultation. Breath sounds equal bilaterally. No wheezes GASTROINTESTINAL: Abdomen soft, non-tender, nondistended. MUSCULOSKELETAL: No lower extremity edema. Pt update on day of discharge Patient reports she is feeling okay today. Pain is controlled. Hospital Course 82-year-old female admitted and treated for the following: Compression fracture of L1 lumbar vertebra Intractable back pain -s/p L1 Kyphoplasty -continue with pain control and PT -DVT prophylaxis postprocedure per orthopedic surgery -Continue rehabilitation efforts at SNF. Diabetes type 2 -Cont Accu checks with SSI -hemoglobin A1c 6.9 History of hypertension, atrial fibrillation and other chronic medical conditions -Resumed aspirin and Plavix -started on amlodipine 5mg po daily Leukocytosis -Likely stress reactive - has resolved hyponatremia- chronic-improved and stable Pt Condition on Discharge: Good Discharge Disposition: Discharge to SNF Discharge Time: > 30 minutes Discharge Instructions DIET: Follow Instructions for: Diabetic Diet Activities you can perform: Regular-No Restrictions Follow up Referrals: Appointment for Follow Up - 2 Weeks with Sourav Bryant MD New Medications: Acetaminophen (Tylenol) 325 Mg Tab 650 MG PO Q6H PRN for PAIN SCALE 4 TO 10, #30 TAB 0 Refills Walker with Front Wheels (Walker with Front Wheels) 1 Mis Mis EA .XX DIRECTED, #1 0 Refills Amlodipine (Norvasc) 5 Mg Tab 5 MG PO DAILY, #30 TAB Continued Medications: Albuterol 18 GM Inh (Ventolin Hfa 18 GM Inh) 90 Mcg/Act Aer 2 PUFF INH Q4-6H PRN for SHORTNESS OF BREATH, #1 INHALER 0 Refills Aspirin (Aspirin) 81 Mg Chew 81 MG CHEW DAILY, TAB 0 Refills Calcium Carbonate-Cholecalciferol (Oyster Shell Calcium) 500-400 Mg-Unit Tab 1 TAB PO DAILY for Calcium Supplement, TAB 0 Refills Clopidogrel (Clopidogrel) 75 Mg Tab 75 MG PO DAILY for Blood Clot Prevention, #30 TAB 0 Refills Denosumab Inj (Prolia Inj) 60 Mg/Ml Inj 60 MG SQ Q180D, VIAL 0 Refills Dronedarone (Multaq) 400 Mg Tab 400 MG PO BID for Regulate Heart Beat, TAB 0 Refills Folic Acid (Folic Acid) 1 Mg Tablet 1 MG PO DIRECTED Hydrocodone-Acetaminophen (Hydrocodone-Acetaminophen) 5-325 mg Tab 1 TAB PO Q4H PRN for PAIN, TAB 0 Refills Hydroxychloroquine (Hydroxychloroquine) 200 Mg Tab 200 MG PO DAILY, #30 TAB 0 Refills Takw with food Levothyroxine (Synthroid) 150 Mcg Tab 150 MCG PO DAILY for Thyroid, #30 TAB 0 Refills Losartan (Losartan) 100 Mg Tab 100 MG PO DAILY for Blood Pressure Management, #30 TAB 0 Refills Metformin (Metformin) 500 Mg Tab 1000 MG PO DAILY for Blood Sugar Management, #30 TAB 0 Refills With a meal Methotrexate (Methotrexate) 2.5 Mg Tab 17.5 INJECTION INJ Q7D, TAB 0 Refills Metoprolol Tartrate (Metoprolol Tartrate) 25 Mg Tab 25 MG PO BID, #60 TAB 0 Refills Multiple Vitamin (Multiple Vitamin) 1 Tab 1 TAB PO DAILY for Nutritional Supplement, TAB 0 Refills Omeprazole (Omeprazole) 20 Mg Tab 20 MG PO DAILY, #30 TAB 0 Refills Kane Joshua MD Sep 04, 2017 13:11
[2017-09-04 16:00] VITALS: BP 119/67; PULSE 87; RESP 17; TEMP 97.8; O2SAT 98
== END 2017-09-04 16:54 | DRG 516 ==
LOC: NEPE 08:43 → NEDA 10:57 → UNDOADMIN 10:57 → INTOOBSV 11:10 → NEDA 11:10 → NEDH 15:09 → NEPHCDU 18:19 → N06B 08-31 07:58 → OBSVTOIN 09-01 11:19
PROVIDERS: ADMIT Family Medicine; ATTEND Family Medicine
PROC: 6A550Z2 Pheresis of Platelets, Single (ICD-10-PCS; 2017-08-30)
PROC: 0QU03JZ Supplement Lumbar Vertebra with Synthetic Substitute, Percutaneous Approach (ICD-10-PCS; 2017-08-31)
PROC: 0QS03ZZ Reposition Lumbar Vertebra, Percutaneous Approach (ICD-10-PCS; principal; 2017-08-31 08:52)
DX: M48.56XA Collapsed vertebra, not elsewhere classified, lumbar region, initial encounter for fracture (principal); E87.1 Hypo-osmolality and hyponatremia; I48.91 Unspecified atrial fibrillation; E11.9 Type 2 diabetes mellitus without complications; D72.829 Elevated white blood cell count, unspecified; I10 Essential (primary) hypertension; M06.9 Rheumatoid arthritis, unspecified; E03.9 Hypothyroidism, unspecified; I25.10 Atherosclerotic heart disease of native coronary artery without angina pectoris; M81.0 Age-related osteoporosis without current pathological fracture; Z85.3 Personal history of malignant neoplasm of breast; Z95.5 Presence of coronary angioplasty implant and graft; Z85.850 Personal history of malignant neoplasm of thyroid; Z88.6 Allergy status to analgesic agent; Z88.5 Allergy status to narcotic agent; Z88.7 Allergy status to serum and vaccine; Z79.82 Long term (current) use of aspirin; Z79.891 Long term (current) use of opiate analgesic; Z79.899 Other long term (current) drug therapy
CPT/HCPCS: 36430; 72070; 72148; 80048; 80053; 82948; 83036; 85025; 86850; 86900; 86901; 94664; 96374; 96375; J0131; J0690; J1100; J1815; J1885; J2270; J2370; J2405; J2710; J3010; J7120; P9035; Q9967